=== PATIENT | male | born 1955 | race Caucasian/White ===

== ENCOUNTER → 2020-12-14 | Outpatient (CLI) | payer MEDICARE ==
[~2020-12-14] MED LIST: DOBUTamine DRIP for NUC MED 500 MG in DEXTROSE/WATER 1 250ML.BAG IV PRN
--- NOTE | 2020-12-14 13:36 | P.STRESS ---
- Stress Test Note Stress Test Results/Findings: Exam Performed: Exam Date: Reason for Exam: Height: Weight: Protocol: Stage: Duration of Exercise: Resting Heart Rate: Resting Blood Pressure: Maximum Achieved Heart Rate: Maximum Achieved Blood Pressure: 85% PMHR: 100% PMHR: METS: Technologist Comment: Stress Test Results/Findings: Baseline heart rate 75 beats a minute, Baseline blood pressure 156/89 mmHg Abnormal ECG at baseline with inverted T waves in the inferior leads and the lateral precordial leads With dobutamine infusion there was pseudonormalization of the ECG abnormalities Upright ST-T segments are noted inferior laterally during dobutamine infusion and in recovery Baseline 2-D echo showed normal LV size and systolic function without segmental wall motion normalities During dobutamine infusion there was stepwise augmentation of overall LV contractility without developing any wall motion normalities The inferior wall contact the was reduced on a 2 chamber view only that there was adequate contraction and wall thickening in all other 3 views @Recovery lesion global LV systolic function with normal Impression Abnormal ECG at baseline with T-wave inversions inferolaterally Pseudonormalization of the ST-T segments with dobutamine infusion No clearcut echocardiographic evidence for ischemia
== END | disposition home or self-care (01) ==
LOC: RADNMMAIN 08:53
PROVIDERS: ATTEND Family Medicine
DX: R94.31 Abnormal electrocardiogram [ECG] [EKG] (principal); R07.89 Other chest pain
CPT/HCPCS: C8930; J1250; Q9950; 93351

== ENCOUNTER → 2021-12-27 | Outpatient (CLI) | payer MEDICARE ==
[2021-12-27 17:51] LABS: HCT 38.3 % (39.6-50.0); HGB 12.3 g/dL (13.0-17.0); MCH 31.2 pg (27.0-32.0); MCHC 32.1 g/dL (32.0-37.0); MCV 97.2 fL (80.0-97.0); Mean Platelet Volume 11.4 fL (9.5-12.2); NRBC Per 100 WBC 0 /100 WBCS (0.0-0.0); Platelet Count 259 X 10*3/uL (140-440); RBC 3.94 X 10*6/uL (4.40-5.60); RDW 14.2 % (11.5-14.5); WBC 8.59 X 10*3/uL (4.50-10.00)
[2021-12-27 18:22] LABS: Anion Gap 12.7 mmol/L (10.00-18.00); Blood Urea Nitrogen 15.6 mg/dL (9.0-27.0); Carbon Dioxide 23.2 mmol/L (20.0-27.5); Non-African American GFR(CKD) 41.4 (60.0-200.0); Potassium 5.2 mmol/L (3.5-5.5)
== END | disposition home or self-care (01) ==
LOC: LABWHC1 12:41
PROVIDERS: ATTEND Internal Medicine Cardiovascular Disease
DX: I25.5 Ischemic cardiomyopathy (principal)
CPT/HCPCS: 36415; 80051; 82565; 84520; 85027

== ENCOUNTER 2022-01-04 07:01 | Day surgery (SDC) | payer MEDICARE ==
[2022-01-03 09:29] VITALS: BMI 25.7
[2022-01-04] MEDS ORDERED: SODIUM CHLORIDE 0.9% 1,000 ML in EMPTY BAG 1 BAG IV ONE (07:17)
[2022-01-04] MEDS ORDERED: HEPARIN SODIUM,PORCINE 10,000 UNIT in SODIUM CHLORIDE 0.9% 1,000 ML IRRIGATION PRN (07:17)
[2022-01-04] MEDS ORDERED: NITROGLYCERIN SL TABS 0.4 MG TAB SUBLINGUAL PRN (07:17)
[2022-01-04] MEDS ORDERED: ALPRAZolam 0.25 MG TAB PO PRN (07:17)
[2022-01-04] MEDS ORDERED: HEPARIN SODIUM,PORCINE 2,500 UNIT in SODIUM CHLORIDE 0.9% 250 ML IRRIGATION PRN (07:17)
[2022-01-04] MEDS ORDERED: ASPIRIN 325 MG TAB PO STA (07:17)
[2022-01-04] MEDS ORDERED: ALPRAZolam 0.5 MG TAB PO PRN (07:17)
[2022-01-04] MEDS ORDERED: ATORVASTATIN 80 MG TAB PO STA (07:17)
[2022-01-04 07:30] VITALS: RESP 16; TEMP 97.8
[2022-01-04] MEDS ORDERED: fentaNYL (PF) 50 MCG/ML 2 ML AMP ONE ×2 (08:42→09:55)
[2022-01-04] MEDS ORDERED: SODIUM CHLORIDE 0.9% 1,000 ML IV ONE (08:48)
[2022-01-04] MEDS: BENZOCAINE SPRAY 1 CAN MUCOUS MEM ONE ×2 (09:05→09:06)
[2022-01-04] MEDS ORDERED: fentaNYL (PF) 50 MCG/ML 2 ML AMP IV ONE ×2 (09:06→10:00)
[2022-01-04] MEDS ORDERED: MIDAZOLAM 2 MG/2 ML VIAL IV ONE ×2 (09:06→10:00)
[2022-01-04] MEDS ORDERED: VERAPAMIL 2.5 MG/ML 2 ML AMP ONE (09:27)
[2022-01-04] MEDS ORDERED: HEPARIN SODIUM 1,000 UN/ML (10ML VL) ONE (09:34)
[2022-01-04] MEDS ORDERED: IV FLUID CONTINUATION 1,000 ML IV ONE (09:41)
[2022-01-04] MEDS ORDERED: LIDOCAINE 1% PF 10 MG/ML (5 ML AMP) SQ ONE (09:54)
[2022-01-04] MEDS ORDERED: VERAPAMIL SYRINGE (5 MG/10 ML) INTRAARTER ONE (10:00)
[2022-01-04] MEDS ORDERED: HEPARIN SODIUM 1,000 UN/ML (10ML VL) IV ONE (10:01)
[2022-01-04] MEDS ORDERED: IOPAMIDOL-370 125ML BTL INJ ONE (10:18)
[2022-01-04] MEDS ORDERED: RX INFO: IV CONTRAST WAS GIVEN 1 EACH MISC MISCELLANE PRN (11:36)
[2022-01-04] MEDS ORDERED: SODIUM CHLORIDE 0.9% 1,000 ML IV SCH (11:45)
--- NOTE | 2022-01-04 13:26 | ECHOT ---
TRANSESOPHAGEAL ECHOCARDIOGRAM TRANSESOPHAGEAL ECHOCARDIOGRAM: INDICATION: Mitral regurgitation. PROCEDURE NOTE: After obtaining informed consent, transesophageal echocardiogram was performed in left lateral position using an Omniplane probe. Local and IV sedation were obtained with 2 mg of Versed and 25 mcg of fentanyl. Patient tolerated the procedure well without any obvious immediate complications. Total sedation time was 10 minutes. Two-D, color Doppler and spectral analysis had been performed. FINDINGS: 1. Mitral valve shows prolapse of the posterior mitral leaflet with moderate to severe anteriorly directed mitral regurgitation. 2. Left atrium appears mildly enlarged. 3. Right atrium and right ventricle seen within normal limits. 4. Aortic root measures within normal limits. 5. There is no evidence of reversal of flow in the pulmonary veins. 6. Left ventricle has normal size and systolic function. 7. Tricuspid valve shows mild tricuspid regurgitation. 8. Aortic valve is a 3-leaflet valve. There is no evidence of aortic stenosis or regurgitation. CONCLUSIONS: Moderate to severe anteriorly directed mitral regurgitation secondary to prolapse of the posterior mitral leaflet. PLAN: Patient will undergo cardiac catheterization to rule out significant obstructive CAD. MMODL / IJN: [id number] /
--- NOTE | 2022-01-04 14:07 | CC ---
CARDIAC CATHETERIZATION REPORT INDICATION: Shortness of breath with abnormal stress test. PROCEDURE NOTE: After obtaining informed consent, left heart catheterization and coronary angiogram were performed via the right radial artery using size 3-1/2 right and left Marisol catheters, and a pigtail catheter to obtain hemodynamics. Patient tolerated the procedure well without any obvious immediate complications. Patient received moderate conscious sedation. Total sedation time was 24 minutes. Patient has chronic renal insufficiency with a creatinine of 7. I hydrated him prior to catheterization and I continued to hydrate him. His contrast threshold is 123 mL. I used roughly 60 mL to complete my cardiac catheterization. We obtained right radial artery access with a micropuncture needle, and catheters and wire were manipulated into the ascending aorta under fluoroscopic guidance. Catheters were exchanged there. Patient received 5 mg of verapamil and 5000 units of IV heparin per protocol. Hemostasis was obtained using a TR band. FINDINGS: HEMODYNAMICS: Left ventricular end-diastolic pressure is 8 mm. There is no significant gradient across the aortic valve. LEFT VENTRICULOGRAM: Left ventriculogram was not performed. ANGIOGRAPHIC DATA: Left main coronary artery is a normal-sized vessel and is free of stenosis. It divides into left anterior descending coronary artery and circumflex coronary artery. LAD gives off a large-caliber diagonal branch that has a focal 80% to 90% stenosis. Circumflex coronary artery shows a chronic subtotally occluded second OM branch that fills late from [id number] collaterals. Right coronary artery is a large dominant vessel that is calcified. It shows a long area of stenosis. At its worst it is 95% stenosed. CONCLUSIONS: Three-vessel coronary artery disease as described above with a long segment of narrowing with focal critical stenosis in the right coronary artery and a diagonal branch with a chronic subtotal occlusion of a small-caliber second 2nd OM branch. PLAN: Angiographic data was reviewed by the on-call alum operator, who will perform angioplasty of the right coronary artery and diagonal branch at a later date. Because of his renal dysfunction, we decided to hydrate him and bring him back at a later date. I discussed these issues at length. He understands and is in agreement with the plans. If addressing the CAD does not improve his symptoms, we might have to consider mitral valve repair. MMODL / IJN: [id number] /
--- NOTE | 2022-01-04 14:07 | LTR ---
January 04, 2022 To: Dr. Burt Haider Re: Sacr Dubois (51) Dear Burt, I performed JOYCE and cardiac catheterization on Scar Dubois. Detailed reports are enclosed for your records. In brief, his transesophageal echo revealed moderate to severe anteriorly directed mitral regurgitation secondary to prolapse of the posterior mitral leaflet, and he has severe critical stenosis involving right coronary artery to diagonal branch. Patient will undergo staged angioplasty of those vessels at a later time, given the renal insufficiency. Thank you for giving me the privilege of participating in the care of this pleasant gentleman. Sincerely, Waqsa Figueredo M.D. REILLY / AMANDA: [id number] /
[2022-01-04 14:27] VITALS: PULSE 68
[2022-01-04 18:01] VITALS: BP 124/74
== END 2022-01-04 14:48 | disposition home or self-care (01) ==
LOC: CATHCVL 07:01
PROVIDERS: ATTEND Internal Medicine Cardiovascular Disease
DX: I25.10 Atherosclerotic heart disease of native coronary artery without angina pectoris (principal); I25.84 Coronary atherosclerosis due to calcified coronary lesion; I08.1 Rheumatic disorders of both mitral and tricuspid valves; I25.5 Ischemic cardiomyopathy; I73.9 Peripheral vascular disease, unspecified; I25.2 Old myocardial infarction; I10 Essential (primary) hypertension; Z82.49 Family history of ischemic heart disease and other diseases of the circulatory system; Z88.8 Allergy status to other drugs, medicaments and biological substances; Z87.891 Personal history of nicotine dependence; Z79.899 Other long term (current) drug therapy; Z79.82 Long term (current) use of aspirin
CPT/HCPCS: 93312; 93320; 93325; 93458; C1769 ×2; C1894; J2250; J2001; J3010; J1644; Q9967

== ENCOUNTER 2022-01-26 05:55 | Inpatient (IN) | payer MEDICARE ==
[~2022-01-26 05:55] MED LIST changes: +ALPRAZolam 0.25 MG TAB PO PRN; -DOBUTamine DRIP for NUC MED 500 MG in DEXTROSE/WATER 1 250ML.BAG IV PRN; +NITROGLYCERIN SL TABS 0.4 MG TAB SUBLINGUAL PRN; +SODIUM CHLORIDE 0.9% 1,000 ML in EMPTY BAG 1 BAG IV ONE
[2022-01-26 06:51] LABS: Calcium 8.2 mg/dL (8.4-10.2); Potassium 4.4 mmol/L (3.5-5.1)
[2022-01-26] MEDS ORDERED: HEPARIN SODIUM,PORCINE 2,500 UNIT in SODIUM CHLORIDE 0.9% 250 ML IRRIGATION PRN (07:00)
[2022-01-26] MEDS ORDERED: ATORVASTATIN 80 MG TAB PO ONE (07:00)
[2022-01-26] MEDS ORDERED: HEPARIN SODIUM,PORCINE 10,000 UNIT in SODIUM CHLORIDE 0.9% 1,000 ML IRRIGATION PRN (07:00)
[2022-01-26] MEDS ORDERED: ASPIRIN 325 MG TAB PO ONE (07:00)
[2022-01-26] MEDS ORDERED: HEPARIN SODIUM 1,000 UN/ML (10ML VL) ONE (07:34)
[2022-01-26] MEDS: MIDAZOLAM 2 MG/2 ML VIAL IV ONE ×2 (07:45→07:57)
[2022-01-26] MEDS ORDERED: LIDOCAINE 1% INJ 10MG/ML (30 ML VIAL-PF) SQ ONE ×3 (07:50→07:55)
[2022-01-26] MEDS ORDERED: fentaNYL (PF) 50 MCG/ML 2 ML AMP ONE (07:50)
[2022-01-26] MEDS ORDERED: fentaNYL (PF) 50 MCG/ML 2 ML AMP IV ONE (07:52)
[2022-01-26] MEDS: HEPARIN SODIUM 1,000 UN/ML (10ML VL) IV ONE ×3 (07:59→08:16)
[2022-01-26] MEDS: NITROGLYCERIN 1000MCG/10ML SYRINGE INTRACORON ONE ×3 (08:10→08:47)
[2022-01-26] MEDS ORDERED: TICAGRELOR 90 MG TAB ONE (08:17)
[2022-01-26] MEDS ORDERED: TICAGRELOR 90 MG TAB PO ONE (08:19)
[2022-01-26] MEDS ORDERED: IOPAMIDOL-370 100ML BTL INJ ONE ×2 (08:32→08:50)
[2022-01-26] MEDS ORDERED: RX INFO: IV CONTRAST WAS GIVEN 1 EACH MISC MISCELLANE PRN (08:58)
[2022-01-26] MEDS ORDERED: MAG HYDROX/AL HYDROX/SIMETH 30 ML CUP PO PRN (08:58)
[2022-01-26] MEDS ORDERED: ATROPINE SULFATE 0.1 MG/ML 10ML SYRINGE IV PRN (08:58)
[2022-01-26] MEDS ORDERED: ZOLPIDEM 5 MG TAB PO PRN (08:58)
[2022-01-26] MEDS ORDERED: ASPIRIN 81 MG PO SCH (09:00)
[2022-01-26] MEDS: ATORVASTATIN 80 MG TAB PO SCH (10:46)
[2022-01-26] MEDS: ASPIRIN 81 MG PO SCH (10:46)
[2022-01-26] MEDS: amLODIPine 5 MG TAB PO SCH (11:10)
[2022-01-26] MEDS: ISOSORBIDE MONONITRATE ER 30 MG TAB.ER.24H PO SCH (11:10)
[2022-01-26] MEDS: FAMOTIDINE 20 MG TAB PO SCH (11:10)
[2022-01-26] MEDS: allopurinoL 100 MG TAB PO SCH (11:10)
[2022-01-26] MEDS: METOPROLOL SUCCINATE (ER) 50 MG TAB.ER.24H PO SCH (11:11)
[2022-01-26] MEDS: SODIUM CHLORIDE 0.9% 1,000 ML in EMPTY BAG 1 BAG IV SCH ×2 (12:33→23:33)
[2022-01-26 12:57] VITALS: BMI 25.4
--- NOTE | 2022-01-26 14:44 | PTCA ---
PERCUTANEOUSTRANS CORORONARY ANGIOGRAPHY DATE OF SERVICE: 01/26/2022. PROCEDURE: 1. PTCA and stenting of a long proximal calcified ulcerated RCA lesion with drug- eluting stents. 2. PTCA and stenting of major diagonal branch of LAD with a drug-eluting stent. PERFORMED BY: Dr. Lyric Perkins. Moderate conscious sedation time was 62 minutes. Patient was administered Versed. Oxygen saturation, hemodynamics and EKG were monitored closely. CLINICAL INFORMATION: Mr. Scar Dubois is a 60-year-old gentleman with a known history of CAD who underwent recent cardiac cath. He also has a history of chronic kidney disease and significant mitral regurgitation. His creatinine was about 1.7. After the cardiac cath. I reviewed the films and suggested that I would do intervention of the proximal RCA and probably of the major diagonal branch. Second obtuse marginal was totally occluded, filling late. The patient was seen by me and I explained to him the rationale, risks, benefits and options. He understood all details and wished to proceed with the procedure. PROCEDURE NOTE: Under local anesthesia and strict aseptic precautions, a 6-Yakut introducer was placed in the right femoral artery. I used a standard right Marisol guide catheter to cannulate the right coronary artery and a run-through wire to cross the lesion. A 2.25 caliber 15 mm long NC Trek balloon was used to pre-dilate the lesion. I then deployed a 28 mm long 2.75 caliber Xience stent distally and another 3.0 caliber 8 mm Xience stent proximally. Excellent angiographic result was achieved. Patient received a total of 7500 units of heparin and ACT was 285. He also received 180 mg of Brilinta. Excellent angiographic result without complication was achieved of the RCA. I then turned my attention to the LAD. I switched the right Marisol guiding catheter to a standard left Marisol guide catheter and I used a J-tip whisper wire. With this wire, I crossed the lesion and kept the wire distally in the major diagonal branch. A 2.25 caliber 15 mm NC Trek balloon was used to pre-dilate the lesion and I then deployed a 23 mm long Xience stent to the diagonal vessel and this was a 2.25 caliber Xience stent. Excellent angiographic result was achieved. Patient did not have chest pain or EKG changes. There was excellent angiographic result of both vessels. The sheath was taken out and Angio-Seal device used to secure hemostasis. He was sent to the room in a stable condition. Findings were discussed with the patient and his family was not available. I called the , but she did not answer the telephone at home. The patient suggested that he will make the phone calls himself. He will be discharged tomorrow if he remains stable and will follow up with Dr. Figueredo in about a week. Excellent angiographic result without complication was achieved. Patient is advised dual antiplatelet therapy with Brilinta and Plavix for a total duration of 1 year without interruption. MMODL / IJN: [id number] /
[2022-01-26] MEDS: TICAGRELOR 90 MG TAB PO SCH (20:06)
[2022-01-26] MEDS: MIRTAZAPINE 15 MG TAB PO SCH (20:06)
[2022-01-27] MEDS: ALPRAZolam 0.5 MG TAB PO PRN ×2 (03:15→20:20)
[2022-01-27] MEDS: HYDROmorphone 1 MG/ML 1 ML SYRINGE IVP PRN (05:28)
[2022-01-27 06:20] LABS: Basophils % (A) 1 %; Eosinophils # (A) 0.3 k/uL (0-0.7); Eosinophils % (A) 3 %; HCT 25.6 % (39.0-53.0); Lymphocytes # (A) 0.8 k/uL (1.0-4.8); Lymphocytes % (A) 9 %; MCH 33.4 pg (25.0-35.0); MCHC 35.4 g/dL (31.0-37.0); MCV 94.3 fL (80.0-100.0); Mean Platelet Volume 7.9; Monocytes # (A) 0.5 k/uL (0-1.0); Monocytes % (A) 5 %; Neutrophils # (A) 6.9 k/uL (1.3-7.7); Neutrophils % (A) 80 %; Platelet Count 208 k/uL (150-450); RBC 2.71 m/uL (4.30-5.90); RDW 13.6 % (11.5-15.5); WBC 8.7 k/uL (3.8-10.6)
[2022-01-27 06:38] LABS: African American GFR (CKD) 66 (>60 ml/min/1.73 sqM); Anion Gap 5 mmol/L; Blood Urea Nitrogen 17 mg/dL (9-20); Calcium 7.6 mg/dL (8.4-10.2); Carbon Dioxide 20 mmol/L (22-30); Chloride 109 mmol/L (98-107); Glucose 113 mg/dL (74-99); Non-African American GFR(CKD) 57 (>60 ml/min/1.73 sqM); Potassium 4.3 mmol/L (3.5-5.1); Sodium 134 mmol/L (137-145)
[2022-01-27] MEDS: ISOSORBIDE MONONITRATE ER 30 MG TAB.ER.24H PO SCH (10:02)
[2022-01-27] MEDS: TICAGRELOR 90 MG TAB PO SCH ×2 (10:02→20:21)
[2022-01-27] MEDS: ATORVASTATIN 80 MG TAB PO SCH (10:02)
[2022-01-27] MEDS: ASPIRIN 81 MG PO SCH (10:02)
[2022-01-27] MEDS: amLODIPine 5 MG TAB PO SCH (10:02)
[2022-01-27] MEDS: allopurinoL 100 MG TAB PO SCH (10:02)
[2022-01-27] MEDS: FAMOTIDINE 20 MG TAB PO SCH (10:02)
[2022-01-27] MEDS: METOPROLOL SUCCINATE (ER) 50 MG TAB.ER.24H PO SCH (10:03)
[2022-01-27 12:07] LABS: HCT 23.7 % (39.0-53.0); HGB 8.3 gm/dL (13.0-17.5); MCH 33.7 pg (25.0-35.0); MCHC 35.1 g/dL (31.0-37.0); MCV 95.9 fL (80.0-100.0); Mean Platelet Volume 8.6; Platelet Count 209 k/uL (150-450); RBC 2.47 m/uL (4.30-5.90); RDW 14.3 % (11.5-15.5); WBC 8.2 k/uL (3.8-10.6)
[2022-01-27] MEDS ORDERED: SODIUM CHLORIDE 0.9% 1,000 ML IV SCH (13:00)
--- NOTE | 2022-01-27 15:28 | US ---
EXAMINATION TYPE: US lower ext pseudo artery RT DATE OF EXAM: 01/27/2022 COMPARISON: NONE CLINICAL HISTORY: R/o pseudoaneurysm. Right groin approach heart cath 1 day ago EXAM PERFORMED: Grayscale and color Doppler duplex imaging performed of the groin, post cardiac karen ter to assess for pseudoaneurysm. SIDE PERFORMED: Right Color and Waveform Doppler performed to assess for the presence of pseudoaneurysm; Positive for pseudoaneurysm - 1.2cm pseudoaneurysm seen that appears to be bi-lobed 3.5cm superficial hypoechoic area seen IMPRESSION: Pseudoaneurysm noted as discussed above.
[2022-01-27 18:14] LABS: Basophils # (A) 0.1 k/uL (0-0.2); Basophils % (A) 1 %; Eosinophils # (A) 0.4 k/uL (0-0.7); Eosinophils % (A) 5 %; HCT 24.7 % (39.0-53.0); HGB 8.5 gm/dL (13.0-17.5); Lymphocytes % (A) 12 %; MCHC 34.5 g/dL (31.0-37.0); MCV 95.6 fL (80.0-100.0); Mean Platelet Volume 8.3; Monocytes # (A) 0.4 k/uL (0-1.0); Monocytes % (A) 5 %; Neutrophils # (A) 6.4 k/uL (1.3-7.7); Neutrophils % (A) 77 %; Platelet Count 203 k/uL (150-450); RBC 2.59 m/uL (4.30-5.90); RDW 13.8 % (11.5-15.5); WBC 8.3 k/uL (3.8-10.6)
--- NOTE | 2022-01-27 19:45 | PN ---
PROGRESS NOTE This gentleman was admitted yesterday for elective PCI of both proximal RCA and a major diagonal branch. Procedure was performed uneventfully. Post-procedure course yesterday was unremarkable, but he woke up this morning at about 3 or 4:00 complaining of some discomfort in the groin and had a significant hematoma that required manual compression and FemoStop placement. This morning the hematoma is smaller and softer, and I took the FemoStop off. The pulse is palpable. There is no bruit. Distal pulse is also palpable but diminished, similar to pre-procedure. It appears that there may be a hematoma, but clinically it does not look like a pseudoaneurysm. I will monitor the hemoglobins and obtain an ultrasound of the groin and hold his discharge. Vital signs are stable. There is no JVD. S1-S2 heard normally with a holosystolic murmur at the apex. Lungs are clear. Abdomen is soft. Right groin has a hematoma. No bruit. Diminished distal pulses. Central nervous system is normal. EKG is unremarkable. Hemoglobin is 9.0, which is a drop and will be followed. Platelet count is normal. Plan is to repeat hemoglobin and consider an ultrasound of the groin to rule out a pseudoaneurysm, and if it is, consider interventional radiology evaluation. For now we will hold discharge. I will keep him in the hospital and make him an inpatient. Discussed my thoughts in detail with the patient. We will be watching him closely. MMODL / IJN: [id number] /
[2022-01-27] MEDS: MIRTAZAPINE 15 MG TAB PO SCH (20:20)
[2022-01-28 05:22] LABS: Basophils # (A) 0.1 k/uL (0-0.2); Basophils % (A) 1 %; Eosinophils # (A) 0.5 k/uL (0-0.7); Eosinophils % (A) 7 %; HCT 23.2 % (39.0-53.0); Lymphocytes # (A) 0.9 k/uL (1.0-4.8); Lymphocytes % (A) 13 %; MCH 32.8 pg (25.0-35.0); MCHC 34.6 g/dL (31.0-37.0); MCV 94.8 fL (80.0-100.0); Mean Platelet Volume 8.1; Monocytes # (A) 0.4 k/uL (0-1.0); Monocytes % (A) 7 %; Neutrophils # (A) 4.9 k/uL (1.3-7.7); Neutrophils % (A) 71 %; Platelet Count 183 k/uL (150-450); RBC 2.45 m/uL (4.30-5.90); RDW 13.8 % (11.5-15.5); WBC 6.9 k/uL (3.8-10.6)
[2022-01-28] MEDS ORDERED: SODIUM CHLORIDE 0.9% 1,000 ML IV SCH (07:44)
[2022-01-28] MEDS ORDERED: SODIUM CHLORIDE 0.9% 500 ML 500 ML IV SCH (07:45)
[2022-01-28] MEDS ORDERED: THROMBIN (BOVINE) 5,000 UNIT VIAL MISCELLANE STA (08:26)
--- NOTE | 2022-01-28 11:05 | P.PN ---
Subjective Progress Note Date: 01/28/22 Principal diagnosis: Right groin discomfort This is a 66-year-old gentleman was known CAD who underwent stenting of the RCA and a dilated recently from right groin approach continues to have right groin discomfort. Further investigation was performed and revealed pseudoaneurysm. The patient was seen this morning. He is in process of seeing by interventional radiology for possible either compression or thrombin injection. Otherwise he remains asymptomatic from the cardiac standpoint in terms of chest pain or chest discomfort. He is on dual antiplatelet therapy with he is hemodynamically stable as well. We'll continue following up with the patient. Objective - Vital Signs Vital signs: Vital Signs Temp 98.5 F 01/28/22 07:00 Pulse 72 01/28/22 07:00 Resp 20 01/28/22 07:00 BP 127/69 01/28/22 07:00 Pulse Ox 96 01/28/22 07:00 FiO2 Intake & Output 01/27/22 01/28/22 01/28/22 18:59 06:59 18:59 Intake Total 0 Output Total 0 Balance 0 0 Intake: Oral 0 Output: Emesis 0 Other: Voiding Method Toilet Urinal # Voids 1 2 # Bowel Movements 0 - Constitutional General appearance: Present: no acute distress - Respiratory Respiratory: bilateral: CTA - Cardiovascular Rhythm: regular - Labs CBC & Chem 7: 01/28/22 04:14 01/27/22 05:58 Labs: Abnormal Lab Results - Last 24 Hours (Table) 01/27/22 01/27/22 01/28/22 Range/Units 11:49 17:57 04:14 RBC 2.47 L 2.59 L 2.45 L (4.30-5.90) m/uL Hgb 8.3 L 8.5 L 8.0 L (13.0-17.5) gm/dL Hct 23.7 L 24.7 L 23.2 L (39.0-53.0) % Lymphocytes # 0.9 L (1.0-4.8) k/uL Assessment and Plan Assessment: Assessment #1 coronary artery disease and status post PCI #2 right groin pseudoaneurysm #3 hypertension #4 dyslipidemia Plan #1 continue dual antiplatelet therapy #2 the patient is in process of having an intervention by interventional radiologist #3 follow-up with the patient
[2022-01-28] MEDS ORDERED: RX INFO: IV CONTRAST WAS GIVEN 1 EACH MISC MISCELLANE PRN (11:13)
--- NOTE | 2022-01-28 11:43 | US ---
EXAMINATION TYPE: US lower ext pseudo artery RT DATE OF EXAM: 01/28/2022 COMPARISON: NONE CLINICAL HISTORY: pseudoaneurysm. EXAM PERFORMED: Grayscale and color Doppler duplex imaging performed of the groin, post cardiac karen ter to assess for pseudoaneurysm. SIDE PERFORMED: Right Color and Waveform Doppler performed to assess for the presence of pseudoaneurysm; Is there ultrasound evidence of a pseudoaneurysm: Yes Exam was performed for procedure planning purposes. Attempts to identify the platinum artery were unsuccessful. Exam is deferred due to vascular surgery, c ase discussed with Dr. Perkins. IMPRESSION: Pseudoaneurysm in right groin shows a multilobular appearance. As above.
[2022-01-28] MEDS: ISOSORBIDE MONONITRATE ER 30 MG TAB.ER.24H PO SCH (12:07)
[2022-01-28] MEDS: ATORVASTATIN 80 MG TAB PO SCH (12:07)
[2022-01-28] MEDS: allopurinoL 100 MG TAB PO SCH (12:07)
[2022-01-28] MEDS: METOPROLOL SUCCINATE (ER) 50 MG TAB.ER.24H PO SCH (12:07)
[2022-01-28] MEDS: FAMOTIDINE 20 MG TAB PO SCH (12:07)
[2022-01-28] MEDS: amLODIPine 5 MG TAB PO SCH (12:07)
--- NOTE | 2022-01-28 12:12 | PN ---
PROGRESS NOTE This gentleman underwent stenting of RCA and major diagonal branch on the sixth of this month. Yesterday he had a hematoma when he woke up around 3 o'clock in the morning. Ultrasound later in the day revealed that there was a 1.2 cm pseudoaneurysm and I requested interventional radiology to see the patient. They would like to see him today. The patient is hemodynamically stable, does not have any symptoms. Hemoglobin is down to 8.0. Vitals are stable. No JVD. S1-S2 heard normally. A holosystolic murmur at the apex is audible. Lungs are clear. Abdomen is soft. Right groin has a hematoma of about 3 cm or so. No change compared to yesterday. Site is soft. There is no bruit. Lower extremities revealed palpable pulses. RECOMMENDATIONS: I am requesting interventional radiology to see the patient and consider ultrasound compression or thrombin injection to help resolve the pseudoaneurysm. I explained this in detail to the patient, explained to him that he may be staying in the hospital 1 more day. We will start his IV at 0.9 saline 20 mL/hour and hopefully he will have ultrasound-guided compression or a thrombin injection today. I discussed my thoughts in detail with the patient. He has no anginal symptoms. His coronary intervention results were excellent. We will continue current medications which include dual antiplatelet therapy. MMODL / IJN: [id number] /
--- NOTE | 2022-01-28 12:39 | P.GSCN ---
History of Present Illness Consult date: 01/28/22 Reason for Consult: right groin pseudoaneurysm post catheterization History of present illness: i was asked to evaluate right groin for treatment, real time u/s performed, case discussed with Dr. Perkins. CTA performed showing deep multilobular pseudoaneurysm formation. Defer to vascular surgery for treatment. Past Medical History Past Medical History: Asthma, GERD/Reflux, Hyperlipidemia, Hypertension, Myocardial Infarction ([place]) Additional Past Medical History / Comment(s): Migraines, Gout. Last Myocardial Infarction Date:: Unknown History of Any Multi-Drug Resistant Organisms: None Reported Past Surgical History: Heart Catheterization Additional Past Surgical History / Comment(s): Colonoscopy. Past Anesthesia/Blood Transfusion Reactions: No Reported Reaction Past Psychological History: No Psychological Hx Reported Smoking Status: Former smoker Past Alcohol Use History: Daily Additional Past Alcohol Use History / Comment(s): Quit smoking 09/14, smoked since age 18. One alcoholic drink daily. Past Drug Use History: Marijuana - Past Family History Mother Family Medical History: No Reported History Medications and Allergies Home Medications Medication Instructions Recorded Confirmed Type Aspirin [Adult Low Dose Aspirin EC] 81 mg PO DAILY 01/03/22 01/26/22 History Atorvastatin [Lipitor] 40 mg PO DAILY 01/03/22 01/26/22 History Famotidine [Pepcid] 20 mg PO DAILY 01/03/22 01/26/22 History Isosorbide Mononitrate ER [Imdur] 30 mg PO DAILY 01/03/22 01/26/22 History Metoprolol Succinate (ER) [Toprol 50 mg PO DAILY 01/03/22 01/26/22 History Xl] allopurinoL 100 mg PO DAILY 01/03/22 01/26/22 History amLODIPine [Norvasc] 5 mg PO DAILY 01/03/22 01/26/22 History Mirtazapine 30 mg PO HS 01/04/22 01/26/22 History Allergies Allergy/AdvReac Type Severity Reaction Status Date / Time rifampin Allergy Swelling Unverified 01/20/22 10:44 Surgical - Exam Vital Signs Temp Pulse Resp BP Pulse Ox 97.6 F 75 16 186/90 96 01/26/22 06:42 01/26/22 06:42 01/26/22 06:42 01/26/22 06:42 01/26/22 06:42 Results - Labs 01/28/22 04:14 01/27/22 05:58 Abnormal Lab Results - Last 24 Hours (Table) 01/27/22 01/28/22 Range/Units 17:57 04:14 RBC 2.59 L 2.45 L (4.30-5.90) m/uL Hgb 8.5 L 8.0 L (13.0-17.5) gm/dL Hct 24.7 L 23.2 L (39.0-53.0) % Lymphocytes # 0.9 L (1.0-4.8) k/uL
--- NOTE | 2022-01-28 13:10 | CT ---
CT angiogram of the lower extremity on the right HISTORY: Pseudoaneurysm Correlation to ultrasound of the right groin 7 and 28 January 2022 Helical acquisition obtained from the lower abdomen through the lower extremities following dynamic a dministration of 125 cc [id number]-370 IV. 3-dimensional reconstructions were performed on an alternate w orkstation. FINDINGS: Atheromatous changes are extensive. Abdominal aorta is not aneurysmal peripherally. The com mon iliac, inferior mesenteric, internal and external iliac arteries are patent with segmental areas of narrowing, atheromatous change. The common femoral arteries are patent. The femoral arteries are p atent. There is confirmation of the pseudoaneurysm at the level of the right common femoral artery, multilob ular configuration extends from the level of the artery towards the skin surface, overall AP dimensio n is approximately 3.6 cm x 9 mm x12 mm. Axial image #114 shows possible flap dissection within the c ommon femoral artery. There is local inflammatory change. There is enhancement of the common femoral vein as well as some tributaries at this level. The left superficial femoral artery is occluded at the level of Brando's canal, there is reconstituti on above the level the knee. Three-vessel outflow is noted to be mid calf level, two-vessel outflow b een is present into the foot. On the right, two-vessel outflow is also present on the right. Diverticular change noted within the colon. Prostate calcifications and enlargement noted incidentall y. IMPRESSION: Pseudoaneurysm right groin, concern for arteriovenous fistula, possible small local disse ction, case discussed with Dr. El personally
[2022-01-28] MEDS: ASPIRIN 81 MG PO SCH (14:58)
[2022-01-28] MEDS: TICAGRELOR 90 MG TAB PO SCH (14:58)
--- NOTE | 2022-01-28 18:55 | P.GSCN ---
History of Present Illness Consult date: 01/28/22 History of present illness: Scar is a 66-year-old male with coronary artery disease who recently underwent stenting of the RCA for a right groin approach. He was having groin pain and per the nursing staff, prior to her leaving yesterday, the dressing was clean and dry but overnight had some degree of drainage and hematoma creation. Reportedly the patient's is a nurse did not look at the access site through the night. At the time it was found, a FemoStop was placed for a few hours and then removed from the ultrasound which did confirm a pseudoaneurysm. A repeat imaging was performed the following day with intent of having radiology inject thrombin. However they did not feel comfortable doing so and required a CT angiogram and deferred to vascular surgery. This was performed showing a pseudoaneurysm that is lobulated. The patient denies any pain anywhere else other than at his groin site. Past Medical History Past Medical History: Asthma, GERD/Reflux, Hyperlipidemia, Hypertension, Desmond cardial Infarction ([place]) Additional Past Medical History / Comment(s): Migraines, Gout. Last Myocardial Infarction Date:: Unknown History of Any Multi-Drug Resistant Organisms: None Reported Past Surgical History: Heart Catheterization Additional Past Surgical History / Comment(s): Colonoscopy. Past Anesthesia/Blood Transfusion Reactions: No Reported Reaction Past Psychological History: No Psychological Hx Reported Smoking Status: Former smoker Past Alcohol Use History: Daily Additional Past Alcohol Use History / Comment(s): Quit smoking 09/14, smoked since age 18. One alcoholic drink daily. Past Drug Use History: Marijuana - Past Family History Mother Family Medical History: No Reported History Medications and Allergies Home Medications Medication Instructions Recorded Confirmed Type Aspirin [Adult Low Dose Aspirin EC] 81 mg PO DAILY 01/03/22 01/26/22 History Atorvastatin [Lipitor] 40 mg PO DAILY 01/03/22 01/26/22 History Famotidine [Pepcid] 20 mg PO DAILY 01/03/22 01/26/22 History Isosorbide Mononitrate ER [Imdur] 30 mg PO DAILY 01/03/22 01/26/22 History Metoprolol Succinate (ER) [Toprol 50 mg PO DAILY 01/03/22 01/26/22 History Xl] allopurinoL 100 mg PO DAILY 01/03/22 01/26/22 History amLODIPine [Norvasc] 5 mg PO DAILY 01/03/22 01/26/22 History Mirtazapine 30 mg PO HS 01/04/22 01/26/22 History Allergies Allergy/AdvReac Type Severity Reaction Status Date / Time rifampin Allergy Swelling Unverified 01/20/22 10:44 Surgical - Exam Vital Signs Temp Pulse Resp BP Pulse Ox 97.6 F 75 16 186/90 96 01/26/22 06:42 01/26/22 06:42 01/26/22 06:42 01/26/22 06:42 01/26/22 06:42 Gen. is a pleasant cooperative male in no acute distress. HEENT is normocephalic, atraumatic, excellent motion intact. Heart appears regular in rate and rhythm at this time. Lungs are clear bilaterally. Abdomen is soft, nontender nondistended. Right groin with large ecchymosis and pulsatile mass. Painful to palpation. Pressure dressing in place. No pain in his lower extremities. Motor sensory intact. Normal mood and affect. Cranial nerves II through XII intact. Anxious. Results Computed tomography scan ultrasounds are reviewed - Labs 01/28/22 04:14 01/27/22 05:58 Abnormal Lab Results - Last 24 Hours (Table) 01/28/22 Range/Units 04:14 RBC 2.45 L (4.30-5.90) m/uL Hgb 8.0 L (13.0-17.5) gm/dL Hct 23.2 L (39.0-53.0) % Lymphocytes # 0.9 L (1.0-4.8) k/uL Assessment and Plan Assessment: Right groin pseudoaneurysm Recent cardiac stent placement Plan: Given the appearance of the imaging, and radiology not feeling this was adequate for injection, would then take the patient to the operating room for surgical repair of the artery. Risks and benefits of this were discussed with the patient is seemingly understands. He'll be nothing by mouth after midnight and type and cross will be ordered.
[2022-01-28] MEDS: MIRTAZAPINE 15 MG TAB PO SCH (19:55)
[2022-01-28] MEDS: ALPRAZolam 0.5 MG TAB PO PRN (19:55)
[2022-01-28] MEDS: SODIUM CHLORIDE 0.9% 1,000 ML IV SCH (19:56)
[2022-01-29] MEDS: amLODIPine 5 MG TAB PO SCH (07:30)
[2022-01-29] MEDS: FAMOTIDINE 20 MG TAB PO SCH (07:30)
[2022-01-29] MEDS: allopurinoL 100 MG TAB PO SCH (07:30)
[2022-01-29] MEDS: ATORVASTATIN 80 MG TAB PO SCH (07:30)
[2022-01-29] MEDS: METOPROLOL SUCCINATE (ER) 50 MG TAB.ER.24H PO SCH (07:31)
[2022-01-29] MEDS: ISOSORBIDE MONONITRATE ER 30 MG TAB.ER.24H PO SCH (07:33)
[2022-01-29] MEDS ORDERED: ceFAZolin 1,000 MG in SODIUM CHLORIDE 0.9% 1,000 ML IRRIGATION ONE (08:09)
[2022-01-29] MEDS ORDERED: IV FLUID CONTINUATION 1,000 ML IV ONE (08:09)
[2022-01-29] MEDS ORDERED: SODIUM CHLORIDE 0.9% 500 ML 500 ML with HEPARIN SODIUM,PORCINE 5,000 UNIT IV ONE ×2 (08:09)
[2022-01-29] MEDS ORDERED: SODIUM CHLORIDE 0.9% 100 ML with ceFAZolin 2,000 MG IV ONE ×2 (08:09)
[2022-01-29] MEDS ORDERED: GLYCOPYRROLATE 0.2 MG/ML 2 ML VIAL ONE (08:13)
[2022-01-29] MEDS ORDERED: MIDAZOLAM 2 MG/2 ML VIAL ONE (08:13)
[2022-01-29] MEDS ORDERED: NEOSTIGMINE 1 MG/ML 10 ML VIAL ONE (08:13)
[2022-01-29] MEDS ORDERED: SUCCINYLCHOLINE CHLORIDE 100 MG/5 ML SYR IV ONE (08:13)
[2022-01-29] MEDS ORDERED: LIDOCAINE 2% INJ 20 MG/ML (2 ML VIAL) ONE (08:13)
[2022-01-29] MEDS ORDERED: PROPOFOL 10 MG/ML 20 ML VIAL IV ONE (08:13)
[2022-01-29] MEDS ORDERED: ceFAZolin 1,000 MG VIAL ONE (08:13)
[2022-01-29] MEDS ORDERED: ROCURONIUM 10 MG/ML (5 ML VIAL) IV ONE (08:13)
[2022-01-29] MEDS ORDERED: fentaNYL (PF) 50 MCG/ML 2 ML AMP ONE (08:13)
[2022-01-29] MEDS ORDERED: LACTATED RINGERS 1,000 ML IV ONE ×2 (08:35→10:15)
[2022-01-29] MEDS: SODIUM CHLORIDE 0.9% 1,000 ML IV SCH ×2 (09:34→11:53)
[2022-01-29] MEDS ORDERED: MEPERIDINE 50 MG/ML SYRINGE IVP ONE (10:10)
--- NOTE | 2022-01-29 11:05 | P.CNPUL ---
History of Present Illness Consult date: 01/29/22 Requesting physician: Mirian Hinson Reason for consult: other (ICU management) Chief complaint: This is on exertion fatigue and inconclusive dobutamine stress test History of present illness: This is a 66-year-old white male with history of chronic dyspnea on exertion 2 months. Patient was seen by Dr. Hoffman in the office, and he underwent stress testing which was inconclusive. Patient underwent cardiac catheterization on 01/04/22, and it was significant for long area of stenosis in the RCA, 95%. However considering the patient had abnormal renal profile at the time, he was advised to undergo angioplasty of the RCA at a later date. On 01/26, patient underwent PTCA and stenting of long proximal calcified ulcerated RCA lesion with drug-eluting stents. He also had PTCA and stenting of major diagonal branch of LAD. This was done by Dr. ESTHER Perkins however this was complicated by developing pseudoaneurysm of the right femoral artery. Radiology was consulted however the abnormality in the right femoral artery was not felt to be appropriate for injections been vascular surgery was consulted. Today the patient underwent repair of pseudoaneurysm of the right femoral artery, postoperatively the surgeon felt it would be best to monitor the patient in the ICU. CT angiogram prior to surgery showed pseudoaneurysm right groin possible AV fistula and possible some local dissection Review of Systems Constitutional: As noted in HPI HEENT: Negative Cardiac: As noted in HPI Pulmonary: Negative, except for chronic dyspnea on exertion GI: Negative Genitourinary: Negative Muscular skeletal: Negative Skin: Negative Endocrine: Negative Hematologic: Negative Urologic: Negative Psychiatric: Past Medical History Past Medical History: Asthma, GERD/Reflux, Hyperlipidemia, Hypertension, Myocardial Infarction ([place]) Additional Past Medical History / Comment(s): Migraines, Gout. Last Myocardial Infarction Date:: Unknown History of Any Multi-Drug Resistant Organisms: None Reported Past Surgical History: Heart Catheterization Additional Past Surgical History / Comment(s): Colonoscopy. Past Anesthesia/Blood Transfusion Reactions: No Reported Reaction Past Psychological History: No Psychological Hx Reported Smoking Status: Former smoker Past Alcohol Use History: Daily Additional Past Alcohol Use History / Comment(s): Quit smoking 09/14, smoked since age 18. One alcoholic drink daily. Past Drug Use History: Marijuana - Past Family History Mother Family Medical History: No Reported History Medications and Allergies Home Medications Medication Instructions Recorded Confirmed Type Aspirin [Adult Low Dose Aspirin EC] 81 mg PO DAILY 01/03/22 01/26/22 History Atorvastatin [Lipitor] 40 mg PO DAILY 01/03/22 01/26/22 History Famotidine [Pepcid] 20 mg PO DAILY 01/03/22 01/26/22 History Isosorbide Mononitrate ER [Imdur] 30 mg PO DAILY 01/03/22 01/26/22 History Metoprolol Succinate (ER) [Toprol 50 mg PO DAILY 01/03/22 01/26/22 History Xl] allopurinoL 100 mg PO DAILY 01/03/22 01/26/22 History amLODIPine [Norvasc] 5 mg PO DAILY 01/03/22 01/26/22 History Mirtazapine 30 mg PO HS 01/04/22 01/26/22 History Allergies Allergy/AdvReac Type Severity Reaction Status Date / Time rifampin Allergy Swelling Unverified 01/20/22 10:44 Physical Exam Vitals: Vital Signs Temp Pulse Pulse Pulse Resp BP BP 01/29/22 10:29 58 L 16 137/41 121/58 01/29/22 10:14 65 16 158/46 137/63 01/29/22 09:59 74 16 144/46 124/58 01/29/22 09:44 97 F L 16 L 16 121/59 01/29/22 07:30 16 01/29/22 07:26 98.9 F 71 16 154/77 01/29/22 02:19 98.6 F 77 16 124/62 01/28/22 19:03 98.5 F 80 18 133/69 01/28/22 15:00 98.5 F 73 18 120/65 Pulse Ox 01/29/22 10:29 96 01/29/22 10:14 97 01/29/22 09:59 100 01/29/22 09:44 99 01/29/22 07:30 01/29/22 07:26 97 01/29/22 02:19 96 01/28/22 19:03 99 01/28/22 15:00 98 Intake and Output 01/28/22 01/29/22 01/29/22 22:59 06:59 14:59 Intake Total 118 1402 Output Total 300 Balance 118 1102 Intake: IV 1402 Oral 118 Output: Urine 250 Estimated Blood Loss 50 Other: Voiding Method Toilet # Voids 1 1 Physical Exam: Revealed a 66-year-old white male in no distress, patient was seen in the recovery room. Head: Atraumatic, normocephalic. HEENT:[Neck is supple.] [No neck masses.] [No thyromegaly.] [No JVD.] Chest: [Clear throughout, no crackles, no rhonchi, no wheezes.] Cardiac Exam: [Normal S1 and S2, no S3 gallop, no murmur.] Abdomen: [Soft, nontender, no megaly, no rebound, no guarding, normal bowel sounds.] Extremities: [No clubbing, no edema, no cyanosis.] Diminished distal pulses bilaterally. No cyanosis both feet felt warm. Neurological Exam: [No focal neurologic deficit.] Alert oriented 3 Psychiatric: Normal mood affect and normal mental examination. Results - Laboratory Findings CBC and BMP: 01/28/22 04:14 01/27/22 05:58 Abnormal lab findings: Abnormal Labs 01/26/22 01/27/22 01/27/22 06:23 05:58 05:58 RBC 2.71 L Hgb 9.0 L Hct 25.6 L Lymphocytes # 0.8 L Sodium 134 L Chloride 108 H 109 H Carbon Dioxide 20 L 20 L BUN 25 H Creatinine 1.45 H 1.28 H Glucose 106 H 113 H Calcium 8.2 L 7.6 L Crossmatch 01/27/22 01/27/22 01/28/22 11:49 17:57 04:14 RBC 2.47 L 2.59 L 2.45 L Hgb 8.3 L 8.5 L 8.0 L Hct 23.7 L 24.7 L 23.2 L Lymphocytes # 0.9 L Sodium Chloride Carbon Dioxide BUN Creatinine Glucose Calcium Crossmatch 01/28/22 19:05 RBC Hgb Hct Lymphocytes # Sodium Chloride Carbon Dioxide BUN Creatinine Glucose Calcium Crossmatch See Detail Assessment and Plan Assessment: Impression: Right groin pseudoaneurysm, status post repair by vascular surgery postoperative day #0 Recent cardiac stent placement Underlying coronary arteriosclerosis Benign essential hypertension Recommendation: Continue present supportive care measures Continue postoperative orders as recommended by vascular surgery Resume his home cardiac meds and his post cardiac cath medications. Will monitor in the ICU for the next 24 hours. We'll continue to follow Time with Patient: Greater than 30
[2022-01-29 11:10] LABS: HCT 20.4 % (39.0-53.0); MCH 33.1 pg (25.0-35.0); MCV 97.4 fL (80.0-100.0); Mean Platelet Volume 7.8; Platelet Count 179 k/uL (150-450); RBC 2.09 m/uL (4.30-5.90); RDW 14.3 % (11.5-15.5); WBC 6.7 k/uL (3.8-10.6)
--- NOTE | 2022-01-29 11:18 | P.OP ---
Date of Procedure: 01/29/22 Description of Procedure: Preoperative diagnosis: [Right femoral pseudoaneurysm, possible AV fistula] Postoperative diagnosis: Same, no evidence of fistula Procedure: [#1 right groin exploration #2 control of hemorrhage #3 repair of right femoral artery/pseudoaneurysm] Surgeon: Mirian Hinson D.O. EBL: [50 mL] IV fluids: [See records ] Urine output: [see records] Drains: [15 JADYN] Complications: [None immediately apparent] Condition: [Stable to recovery] Operative indication and findings: [The patient is a 66-year-old male who recently underwent a heart catheterization and stent placement who developed groin pain and significant ecchymosis. Evaluation and workup found a right femoral pseudoaneurysm with possible AV fistula. It was not amenable to injection per the radiology team therefore plans are to take the patient is a operative suite for repair. Risks and benefits were discussed. He seemingly understood and was willing to proceed] Procedure in detail: [Patient is taken the operative suite and placed in supine position. The bilateral groins are prepped and draped in usual sterile fashion. A preprocedure timeout was performed, all parties were in agreement. A vertical incision was made overlying the pulsatile mass and carried down to subcu tissue. There was significant hemorrhagic change the tissues. Brisk and blunt dissection was performed down to the level of the common femoral artery and digital pressure was held. The artery was dissected free and was encircled with a vessel loop. Flow was occluded at this level. Then further distal dissection was performed encountering the area of bleeding. Initial 6-0 Prolene was placed. Further dissection was performed and did elicit the actual puncture site at the distal common femoral artery where the artery took a dive deep. 6-0 Prolene was placed and hemostasis was achieved. The vessel loop was loosened and blood flow was resumed. No active bleeding. Further dissection was performed to evaluate for possible fistula. A long segment of the femoral artery was dissected without any evidence of fistulization. The area then was copiously irrigated with antibiotic solution. Hematoma was removed. Again hemostasis appeared sufficient and there is no oozing from the access site. A Doppler was utilized showing multiphasic signal proximally and distally to the repair. There was good palpable pulse distal to the repair A 15 JADYN drain was placed through a separate puncture site. The wound was then reapproximated the femoral sheath was reapproximated with 3-0 Vicryl. The subcutaneous tissues were present with 3-0 Vicryl. The skin was reapproximated with running 4-0 Vicryl. The drain was set in place with a 2-0 nylon. dressings were placed. Patient was transferred to recovery in stable condition having tolerated the procedure well]
[2022-01-29 11:23] LABS: Glucose,Whole Blood 107 mg/dL (70-110)
[2022-01-29 12:01] LABS: HGB 6.9 gm/dL (13.0-17.5)
[2022-01-29] MEDS: HYDROmorphone 1 MG/ML 1 ML SYRINGE IVP PRN (12:57)
[2022-01-29] MEDS ORDERED: DEXAMETHASONE SOD PHOSPHATE 10 MG/ML 1 ML VIAL IVP STA (17:27)
[2022-01-29] MEDS ORDERED: ONDANSETRON 4 MG/2 ML VIAL IVP PRN (17:28)
[2022-01-29] MEDS ORDERED: CLEVIDIPINE BUTYRATE 25 MG in EMPTY BAG 1 BAG IV SCH (17:30)
[2022-01-29] MEDS ORDERED: hydrALAZINE HCL 20 MG/ML 1 ML VIAL IVP PRN (17:46)
[2022-01-29 18:34] LABS: HCT 24.2 % (39.0-53.0); MCH 32.6 pg (25.0-35.0); MCHC 34.6 g/dL (31.0-37.0); MCV 94.2 fL (80.0-100.0); Mean Platelet Volume 8.3; Platelet Count 165 k/uL (150-450); RBC 2.57 m/uL (4.30-5.90); RDW 14.4 % (11.5-15.5); WBC 11.4 k/uL (3.8-10.6)
[2022-01-29 18:54] LABS: HGB 8.4 gm/dL (13.0-17.5)
[2022-01-29] MEDS: MIRTAZAPINE 15 MG TAB PO SCH (21:40)
[2022-01-29] MEDS: TICAGRELOR 90 MG TAB PO SCH (21:42)
[2022-01-30 04:51] LABS: Basophils % (A) 0 %; Eosinophils % (A) 0 %; HGB 8.3 gm/dL (13.0-17.5); Lymphocytes # (A) 0.3 k/uL (1.0-4.8); Lymphocytes % (A) 3 %; MCH 32.7 pg (25.0-35.0); MCHC 34.5 g/dL (31.0-37.0); MCV 94.6 fL (80.0-100.0); Mean Platelet Volume 7.9; Monocytes # (A) 0.2 k/uL (0-1.0); Monocytes % (A) 2 %; Neutrophils % (A) 94 %; Platelet Count 205 k/uL (150-450); RBC 2.54 m/uL (4.30-5.90); RDW 14.8 % (11.5-15.5); WBC 9.6 k/uL (3.8-10.6)
[2022-01-30 04:55] LABS: Albumin 2.8 g/dL (3.5-5.0); Calcium 7.5 mg/dL (8.4-10.2); Potassium 4.4 mmol/L (3.5-5.1); Total Bilirubin 0.3 mg/dL (0.2-1.3); Total Protein 5.4 g/dL (6.3-8.2)
[2022-01-30] MEDS: TICAGRELOR 90 MG TAB PO SCH ×2 (08:12→20:45)
[2022-01-30] MEDS: FAMOTIDINE 20 MG TAB PO SCH (08:12)
[2022-01-30] MEDS: METOPROLOL SUCCINATE (ER) 50 MG TAB.ER.24H PO SCH (08:12)
[2022-01-30] MEDS: ISOSORBIDE MONONITRATE ER 30 MG TAB.ER.24H PO SCH (08:12)
[2022-01-30] MEDS: allopurinoL 100 MG TAB PO SCH (08:12)
[2022-01-30] MEDS: ATORVASTATIN 80 MG TAB PO SCH (08:12)
[2022-01-30 12:03] LABS: Glucose,Whole Blood 152 mg/dL (70-110)
--- NOTE | 2022-01-30 12:19 | P.PN ---
Subjective Progress Note Date: 01/30/22 Principal diagnosis: Status post right groin exploration and repair of right femoral artery pseudoaneurysm. Postoperative day #1 This is a 66-year-old white male with history of chronic dyspnea on exertion 2 months. Patient was seen by Dr. Hoffman in the office, and he underwent stress testing which was inconclusive. Patient underwent cardiac catheterization on 01/04/22, and it was significant for long area of stenosis in the RCA, 95%. However considering the patient had abnormal renal profile at the time, he was advised to undergo angioplasty of the RCA at a later date. On 01/26, patient underwent PTCA and stenting of long proximal calcified ulcerated RCA lesion with drug-eluting stents. He also had PTCA and stenting of major diagonal branch of LAD. This was done by Dr. ESTHER Perkins however this was complicated by developing pseudoaneurysm of the right femoral artery. Radiology was consulted however the abnormality in the right femoral artery was not felt to be appropriate for injections been vascular surgery was consulted. Today the patient underwent repair of pseudoaneurysm of the right femoral artery, postoperatively the surgeon felt it would be best to monitor the patient in the ICU. CT angiogram prior to surgery showed pseudoaneurysm right groin possible AV fistula and possible some local dissection Reevaluated today 01/30/2022, patient is doing fairly well, relatively asymptomatic. No cough no wheezing no shortness of breath, continues to have a JADYN drain in the right groin area, however the patient is relatively asymptomatic. Yesterday the patient had a low hemoglobin of 6.9 he did receive a unit of packed RBCs, patient developed a minor nonhemolytic reaction to the blood transfusion, patient developed fever, chills, and hypertension. This was very transient, workup for major reaction to blood transfusion was negative. Patient did receive 1 dose of Decadron, and within half an hour his symptoms have completely resolved. Today the patient is doing well, and asymptomatic. Labs today including CBC and basic metabolic profile are unremarkable. His hemoglobin is 8.3, it was 6.9 yesterday Objective - Vital Signs Vital signs: Vital Signs Temp 98.8 F 01/30/22 08:00 Pulse 72 01/30/22 10:00 Resp 18 01/30/22 11:00 BP 108/56 01/30/22 11:00 Pulse Ox 96 01/30/22 11:00 FiO2 Intake & Output 07/09/22 07/10/22 07/10/22 18:59 06:59 18:59 Intake Total 2233 1836 312 Output Total 685 1160 320 Balance 1548 676 -8 Weight 75.8 kg Intake: IV 1623 911 312 Pressure Bag 0.9 NS 21 36 12 Sodium Chloride 0.9% 1, 825 300 000 ml @ 75 mls/hr IV . [id number] VERA Rx#:[id number] ceFAZolin 2 gm In Sodium 50 Chloride 0.9% 50 ml @ 100 mls/hr IVPB Q8HR [facility]A Rx# :[id number] Intake, IV Titration 300 75 Amount Sodium Chloride 0.9% 1, 250 75 000 ml @ 75 mls/hr IV . [id number] VERA Rx#:[id number] ceFAZolin 2 gm In Sodium 50 Chloride 0.9% 50 ml @ 100 mls/hr IVPB Q8HR VERA Rx# :[id number] Oral 850 Blood Product 310 Rc As-1 Unit 310 [id number] Output: Urine 635 1160 320 Estimated Blood Loss 50 Other: Voiding Method Indwelling Catheter Indwelling Catheter Indwelling Catheter # Voids 0 ABP, PAP, CO, CI - Last Documented Arterial Blood Pressure 108/46 - Exam Physical Exam HEENT:[Neck is supple.] [No neck masses.] [No thyromegaly.] [No JVD.] Chest: [Clear throughout, no crackles, no rhonchi, no wheezes.] Cardiac Exam: [Normal S1 and S2, no S3 gallop, no murmur.] Abdomen: [Soft, nontender, no megaly, no rebound, no guarding, normal bowel sounds.] Extremities: [No clubbing, no edema, no cyanosis.] Evidence of ecchymosis noted in the right groin area and JADYN drain noted. Minimal blood noted in the JADYN drain Neurological Exam: [No focal neurologic deficit.] Alert oriented 3 Psychiatric: Normal mood affect and normal mental status examination. - Labs CBC & Chem 7: 01/30/22 04:20 01/30/22 04:20 Labs: Abnormal Lab Results - Last 24 Hours (Table) 01/28/22 01/29/22 01/30/22 Range/Units 19:05 17:50 04:20 WBC 11.4 H (3.8-10.6) k/uL RBC 2.57 L 2.54 L (4.30-5.90) m/uL Hgb 8.4 L D 8.3 L (13.0-17.5) gm/dL Hct 24.2 L 24.0 L (39.0-53.0) % Neutrophils # 9.0 H (1.3-7.7) k/uL Lymphocytes # 0.3 L (1.0-4.8) k/uL Sodium (137-145) mmol/L Chloride (98-107) mmol/L Carbon Dioxide (22-30) mmol/L Creatinine (0.66-1.25) mg/dL Glucose (74-99) mg/dL POC Glucose (mg/dL) (70-110) mg/dL Calcium (8.4-10.2) mg/dL Total Protein (6.3-8.2) g/dL Albumin (3.5-5.0) g/dL Crossmatch See Detail 01/30/22 01/30/22 Range/Units 04:20 12:01 WBC (3.8-10.6) k/uL RBC (4.30-5.90) m/uL Hgb (13.0-17.5) gm/dL Hct (39.0-53.0) % Neutrophils # (1.3-7.7) k/uL Lymphocytes # (1.0-4.8) k/uL Sodium 132 L (137-145) mmol/L Chloride 108 H (98-107) mmol/L Carbon Dioxide 19 L (22-30) mmol/L Creatinine 1.30 H (0.66-1.25) mg/dL Glucose 127 H (74-99) mg/dL POC Glucose (mg/dL) 152 H (70-110) mg/dL Calcium 7.5 L (8.4-10.2) mg/dL Total Protein 5.4 L (6.3-8.2) g/dL Albumin 2.8 L (3.5-5.0) g/dL Crossmatch Assessment and Plan Assessment: Impression: Right groin pseudoaneurysm, status post repair by vascular surgery postoperative day #1 Recent cardiac stent placement Underlying coronary arteriosclerosis Benign essential hypertension Minor reaction to blood transfusion, unexpected, workup as per protocol was negative. And the reaction was very limited Recommendation: Continue present supportive care measures Vascular surgery to decide on possible discharging the patient home Cardiology to evaluate and also decide on discharging the patient home Can potentially transfer out of the ICU to a monitor bed on selective if not discharged home today. We'll continue to follow Time with Patient: Less than 30
[2022-01-30] MEDS: SODIUM CHLORIDE 0.9% 1,000 ML IV SCH (12:44)
--- NOTE | 2022-01-30 16:36 | P.PN ---
Subjective Patient seen and examined. Patient remains in ICU and being monitored. Denies any chest pain or pressure. He underwent surgery with right femoral pseudoaneurysm repair. He also received blood transfusion and did spike a temperature during transfusion. Mild pain around the right femoral site however appears stable. Objective - Vital Signs Vital signs: Vital Signs Temp 98.0 F 01/30/22 16:00 Pulse 62 01/30/22 16:00 Resp 12 01/30/22 16:00 BP 108/56 01/30/22 16:00 Pulse Ox 98 01/30/22 16:00 FiO2 Intake & Output 01/29/22 01/30/22 01/30/22 18:59 06:59 18:59 Intake Total 2233 1836 1012 Output Total 685 1160 570 Balance 1548 676 442 Weight 75.8 kg Intake: IV 1623 911 312 Pressure Bag 0.9 NS 21 36 12 Sodium Chloride 0.9% 1, 825 300 000 ml @ 75 mls/hr IV . [id number] [facility]A Rx#:[id number] ceFAZolin 2 gm In Sodium 50 Chloride 0.9% 50 ml @ 100 mls/hr IVPB Q8HR [facility] Rx# :[id number] Intake, IV Titration 300 75 Amount Sodium Chloride 0.9% 1, 250 75 000 ml @ 75 mls/hr IV . [id number] [facility]A Rx#:[id number] ceFAZolin 2 gm In Sodium 50 Chloride 0.9% 50 ml @ 100 mls/hr IVPB Q8HR [facility]A Rx# :[id number] Oral 850 700 Blood Product 310 Rc As-1 Unit 310 [id number] Output: Urine 635 1160 570 Estimated Blood Loss 50 Other: Voiding Method Indwelling Catheter Indwelling Catheter Indwelling Catheter # Voids 1 ABP, PAP, CO, CI - Last Documented Arterial Blood Pressure 88/66 - Labs CBC & Chem 7: 01/30/22 04:20 01/30/22 04:20 Labs: Abnormal Lab Results - Last 24 Hours (Table) 01/29/22 01/30/22 01/30/22 Range/Units 17:50 04:20 04:20 WBC 11.4 H (3.8-10.6) k/uL RBC 2.57 L 2.54 L (4.30-5.90) m/uL Hgb 8.4 L D 8.3 L (13.0-17.5) gm/dL Hct 24.2 L 24.0 L (39.0-53.0) % Neutrophils # 9.0 H (1.3-7.7) k/uL Lymphocytes # 0.3 L (1.0-4.8) k/uL Sodium 132 L (137-145) mmol/L Chloride 108 H (98-107) mmol/L Carbon Dioxide 19 L (22-30) mmol/L Creatinine 1.30 H (0.66-1.25) mg/dL Glucose 127 H (74-99) mg/dL POC Glucose (mg/dL) (70-110) mg/dL Calcium 7.5 L (8.4-10.2) mg/dL Total Protein 5.4 L (6.3-8.2) g/dL Albumin 2.8 L (3.5-5.0) g/dL 01/30/22 Range/Units 12:01 WBC (3.8-10.6) k/uL RBC (4.30-5.90) m/uL Hgb (13.0-17.5) gm/dL Hct (39.0-53.0) % Neutrophils # (1.3-7.7) k/uL Lymphocytes # (1.0-4.8) k/uL Sodium (137-145) mmol/L Chloride (98-107) mmol/L Carbon Dioxide (22-30) mmol/L Creatinine (0.66-1.25) mg/dL Glucose (74-99) mg/dL POC Glucose (mg/dL) 152 H (70-110) mg/dL Calcium (8.4-10.2) mg/dL Total Protein (6.3-8.2) g/dL Albumin (3.5-5.0) g/dL Assessment and Plan Assessment: Assessment #1 coronary artery disease and status post PCI #2 right groin pseudoaneurysm, s/p repair 01/29 #3 hypertension #4 dyslipidemia #5 acute blood loss anemia, status post blood transfusion 01/29 Plan Continue dual antiplatelet therapy Continue to monitor right femoral site and monitor hemoglobin. Appears to be stabilizing after surgery. Blood pressures somewhat borderline however appears to be doing well. Hopeful discharge home in next 24-48 hours if remains stable.
[2022-01-30 17:31] LABS: Glucose,Whole Blood 159 mg/dL (70-110)
--- NOTE | 2022-01-30 18:21 | P.PN ---
Subjective Progress Note Date: 01/30/22 Patient seen and examined. Overall feeling better. Thinks his groin pain is significantly improved. Mild discomfort at the incision site. He did have blood transfusion yesterday and did have a temperature after transfusion however has since resolved without any further concerns. He has been up to chair. He has urinated since his Hinson catheters been removed. The A-line was removed today. Objective - Vital Signs Vital signs: Vital Signs Temp 98.0 F 01/30/22 16:00 Pulse 75 01/30/22 18:00 Resp 26 H 01/30/22 18:00 BP 128/70 01/30/22 18:00 Pulse Ox 96 01/30/22 18:00 FiO2 Intake & Output 01/29/22 01/30/22 01/30/22 18:59 06:59 18:59 Intake Total 2233 1836 1362 Output Total 685 1160 970 Balance 1548 676 392 Weight 75.8 kg Intake: IV 1623 911 312 Pressure Bag 0.9 NS 21 36 12 Sodium Chloride 0.9% 1, 825 300 000 ml @ 75 mls/hr IV . [id number] [facility]A Rx#:[id number] ceFAZolin 2 gm In Sodium 50 Chloride 0.9% 50 ml @ 100 mls/hr IVPB Q8HR [facility]A Rx# :[id number] Intake, IV Titration 300 75 Amount Sodium Chloride 0.9% 1, 250 75 000 ml @ 75 mls/hr IV . [id number] [facility]A Rx#:[id number] ceFAZolin 2 gm In Sodium 50 Chloride 0.9% 50 ml @ 100 mls/hr IVPB Q8HR [facility]A Rx# :[id number] Oral 850 1050 Blood Product 310 Rc As-1 Unit 310 [id number] Output: Urine 635 1160 970 Estimated Blood Loss 50 Other: Voiding Method Indwelling Catheter Indwelling Catheter Indwelling Catheter # Voids 0 ABP, PAP, CO, CI - Last Documented Arterial Blood Pressure 88/66 - Exam Right upper extremity mild edema, improved from previous. Ecchymosis. Left upper extremity a leg removed. Site is clean and dry. Right femoral incision site with previous ecchymosis. Dressing appears clean and dry. Minimal serosanguineous output in the JADYN drain - Labs CBC & Chem 7: 01/30/22 04:20 01/30/22 04:20 Labs: Abnormal Lab Results - Last 24 Hours (Table) 01/29/22 01/30/22 01/30/22 Range/Units 17:50 04:20 04:20 WBC 11.4 H (3.8-10.6) k/uL RBC 2.57 L 2.54 L (4.30-5.90) m/uL Hgb 8.4 L D 8.3 L (13.0-17.5) gm/dL Hct 24.2 L 24.0 L (39.0-53.0) % Neutrophils # 9.0 H (1.3-7.7) k/uL Lymphocytes # 0.3 L (1.0-4.8) k/uL Sodium 132 L (137-145) mmol/L Chloride 108 H (98-107) mmol/L Carbon Dioxide 19 L (22-30) mmol/L Creatinine 1.30 H (0.66-1.25) mg/dL Glucose 127 H (74-99) mg/dL POC Glucose (mg/dL) (70-110) mg/dL Calcium 7.5 L (8.4-10.2) mg/dL Total Protein 5.4 L (6.3-8.2) g/dL Albumin 2.8 L (3.5-5.0) g/dL 01/30/22 01/30/22 Range/Units 12:01 17:30 WBC (3.8-10.6) k/uL RBC (4.30-5.90) m/uL Hgb (13.0-17.5) gm/dL Hct (39.0-53.0) % Neutrophils # (1.3-7.7) k/uL Lymphocytes # (1.0-4.8) k/uL Sodium (137-145) mmol/L Chloride (98-107) mmol/L Carbon Dioxide (22-30) mmol/L Creatinine (0.66-1.25) mg/dL Glucose (74-99) mg/dL POC Glucose (mg/dL) 152 H 159 H (70-110) mg/dL Calcium (8.4-10.2) mg/dL Total Protein (6.3-8.2) g/dL Albumin (3.5-5.0) g/dL Assessment and Plan Assessment: Right groin pseudoaneurysm Recent cardiac stent placement Plan: Overall patient appears to be doing well. He can downgraded from the ICU. Continue JADYN at this time for further monitoring. Possibly consider removal tomorrow versus going home with drain and follow-up in the office and short-term for discontinuation. Increase activity. Monitor labs. Hopeful for discharge in the next 24 hours.
[2022-01-30] MEDS: ALPRAZolam 0.5 MG TAB PO PRN (20:46)
[2022-01-30] MEDS: MIRTAZAPINE 15 MG TAB PO SCH (20:55)
[2022-01-31 08:57] VITALS: BP 145/65; PULSE 69; RESP 18; TEMP 97.6
[2022-01-31] MEDS: SODIUM CHLORIDE 0.9% 1,000 ML IV SCH (08:57)
[2022-01-31] MEDS ORDERED: ASPIRIN 81 MG PO SCH (09:00)
[2022-01-31] MEDS: TICAGRELOR 90 MG TAB PO SCH (09:11)
[2022-01-31] MEDS: FAMOTIDINE 20 MG TAB PO SCH (09:11)
[2022-01-31] MEDS: ISOSORBIDE MONONITRATE ER 30 MG TAB.ER.24H PO SCH (09:11)
[2022-01-31] MEDS: METOPROLOL SUCCINATE (ER) 50 MG TAB.ER.24H PO SCH (09:11)
[2022-01-31] MEDS: ATORVASTATIN 80 MG TAB PO SCH (09:11)
[2022-01-31] MEDS: allopurinoL 100 MG TAB PO SCH (09:11)
--- NOTE | 2022-01-31 09:46 | CDI ---
Documentation Clarification Form Date: 01/31/2022 09:34:02 AM From: Tiana Infante CCS, CCDS Admit Date: 01/28/2022 07:40:00 AM Patient Name: Scar Rodriguez Visit Number: [id number] Discharge Date: ATTENTION: The Clinical Documentation Specialists (CDI) and [facility] Coding Staff appreciate your assistance in clarifying documentation. Please respond to the clarification below the line at the bottom and electronically sign. The CDI & [facility] Coding staff will review the response and follow-up if needed. Please note: Queries are made part of the Legal Health Record. If you have any questions, please contact the author of this message via ITS. Dr. Chente Johnson: Acute blood loss anemia, status post blood transfusion 01/29 is documented in the 01/30 Cardiology Progress Note. Additional clarification is requested regarding the relationship, if any, that exists between the diagnosis and the procedure. Patients Admitting Diagnosis: Admit with 01/28 with Pseudoaneurysm which developed after cardiac procedure, PTCA on 01/26. Post-Operative Diagnosis: CAD status post PCI, Right groin pseuoaneurysm status post repair 01/29, Hypertension, Hyperlipidemia, ABLA status post blood transfusion 01/29. Procedure performed: 01/26 PTCA and stenting of a long proximal calcified ulcerated RCA lesion with drug eluting stents. PTCA an stenting of major diagonal branch of LAD with a drug eluting stent. History/Risk Factors per the 01/28 Cardiology Consult: Asthma, GERD, Hyperlipidemia, Hypertension, [place], Gout, Migraines, Former smoker. Clinical Indicators: Presented for elective PTCA with stent on 01/26. Admit on 01/28 with Pseudoaneurysm right femoral artery status post open surgical repair on 01/29. 01/29 Blood Transufsion: 1 unit. Treatment: 01/29 Blood transfusion as above, O2 2Lnc, IV Cefazolin, IV Na Chloride, IV Heparin, IV Lactated ringers, IV Demerol 12.5 mg x1, IV Decadron 6 mg x1, IV Zofran 4 mg q6H, IV Apresoline 10 mg q6H, po Brillinta BI. What relationship, if any, exists between the diagnosis of Pseudoaneurysm requiring surgical repair and Acute Blood Loss Anemia and the procedure: [ x ] ABLA is a complication of surgical procedure [ ] ABLA is an expected outcome of the surgical procedure [ ] ALBA is related to patients co-morbid condition(s), please specify: an is not a complication of the procedure [ ] Other please specify: [ ] Unable to determine (Template Last Revised: September 2020) MTDD
--- NOTE | 2022-01-31 11:22 | P.PN ---
Subjective Progress Note Date: 01/31/22 Principal diagnosis: Pseudoaneurysm On patient seen and examined at the follow-up he is status post repair of right femoral pseudoaneurysm. He has a JADYN drain in place with reported 15, also out of serosanguineous drainage through the night. There is another 5-10 miles in there currently. He states he does have some tenderness however he's been up and ambulating. He has good sensation to the right lower extremity. Objective - Vital Signs Vital signs: Vital Signs Temp 97.6 F 01/31/22 08:56 Pulse 69 01/31/22 08:56 Resp 18 01/31/22 08:56 BP 145/65 01/31/22 08:56 Pulse Ox 97 01/31/22 08:56 FiO2 Intake & Output 01/30/22 01/31/22 01/31/22 18:59 06:59 18:59 Intake Total 1362 150 Output Total 970 15 Balance 392 135 Intake: IV 312 Pressure Bag 0.9 NS 12 Sodium Chloride 0.9% 1, 300 000 ml @ 75 mls/hr IV . [id number] VERA Rx#:[id number] Oral 1050 150 Output: Drainage 15 Right 15 Urine 970 0 Other: Voiding Method Indwelling Catheter Urinal # Voids 0 2 ABP, PAP, CO, CI - Last Documented Arterial Blood Pressure 88/66 - Exam Right lower extremity mild edema, ecchymosis. JADYN drain intact, dressing with small amount of old blood noted. Minimal serosanguineous output in the JADYN drain. Palpable femoral, popliteal and DP pulses. - Labs CBC & Chem 7: 01/30/22 04:20 01/30/22 04:20 Labs: Abnormal Lab Results - Last 24 Hours (Table) 01/28/22 01/30/22 01/30/22 Range/Units 19:05 12:01 17:30 POC Glucose (mg/dL) 152 H 159 H (70-110) mg/dL Crossmatch See Detail Assessment and Plan Assessment: 1. Right groin pseudoaneurysm status post repair 2. Recent cardiac stent placement Plan: Patient is cleared for discharge from vascular surgical standpoint would like to keep JADYN drain in place, patient to follow-up with Dr. Hinson for removal within 1 week. Thank you for this consultation. The impression and plan of care has been dictated as directed. I performed a history and examination of this patient, discussed the same with the dictator. I agree with the dictator's note ,documented as a scribe. Any additional findings or plans will be noted.
--- NOTE | 2022-01-31 12:12 | P.PN ---
Subjective Progress Note Date: 01/31/22 Principal diagnosis: ASHD. Status post right groin exploration and repair of right femoral artery pseudoaneurysm. Postoperative day #1 This is a 66-year-old white male with history of chronic dyspnea on exertion 2 months. Patient was seen by Dr. Hoffman in the office, and he underwent stress testing which was inconclusive. Patient underwent cardiac catheterization on 01/04/22, and it was significant for long area of stenosis in the RCA, 95%. However considering the patient had abnormal renal profile at the time, he was advised to undergo angioplasty of the RCA at a later date. On 01/26, patient underwent PTCA and stenting of long proximal calcified ulcerated RCA lesion with drug-eluting stents. He also had PTCA and stenting of major diagonal branch of LAD. This was done by Dr. ESTHER Perkins however this was complicated by developing pseudoaneurysm of the right femoral artery. Radiology was consulted however the abnormality in the right femoral artery was not felt to be appropriate for injections been vascular surgery was consulted. Today the patient underwent rep air of pseudoaneurysm of the right femoral artery, postoperatively the surgeon felt it would be best to monitor the patient in the ICU. CT angiogram prior to surgery showed pseudoaneurysm right groin possible AV fistula and possible some local dissection Reevaluated today 01/30/2022, patient is doing fairly well, relatively asymptomatic. No cough no wheezing no shortness of breath, continues to have a JADYN drain in the right groin area, however the patient is relatively asymptomatic. Yesterday the patient had a low hemoglobin of 6.9 he did receive a unit of packed RBCs, patient developed a minor nonhemolytic reaction to the blood transfusion, patient developed fever, chills, and hypertension. This was very transient, workup for major reaction to blood transfusion was negative. Patient did receive 1 dose of Decadron, and within half an hour his symptoms have completely resolved. Today the patient is doing well, and asymptomatic. Labs today including CBC and basic metabolic profile are unremarkable. His hemoglobin is 8.3, it was 6.9 yesterday Progress note dated 01/31/2022. The patient was seen in consultation at couple days ago. Patient was in the intensive care unit for a possible pseudoaneurysm, of the right femoral artery. The patient is currently resting comfortably, and hoping to be discharged home soon. The patient is not on any supplemental oxygen. The patient is not receiving any IV fluids. No new labs today. Objective - Vital Signs Vital signs: Vital Signs Temp 97.6 F 01/31/22 08:56 Pulse 69 01/31/22 08:56 Resp 18 01/31/22 08:56 BP 145/65 01/31/22 08:56 Pulse Ox 97 01/31/22 08:56 FiO2 Intake & Output 01/30/22 01/31/22 01/31/22 18:59 06:59 18:59 Intake Total 1362 150 Output Total 970 15 Balance 392 135 Intake: IV 312 Pressure Bag 0.9 NS 12 Sodium Chloride 0.9% 1, 300 000 ml @ 75 mls/hr IV . [id number] VERA Rx#:[id number] Oral 1050 150 Output: Drainage 15 Right 15 Urine 970 0 Other: Voiding Method Indwelling Catheter Urinal Urinal # Voids 0 2 ABP, PAP, CO, CI - Last Documented Arterial Blood Pressure 88/66 - Exam No acute distress, oriented 3. HEENT examination is grossly unremarkable. Neck supple. Full range of motion. No adenopathy thyromegaly or neck vein distention. Cardiovascular examination reveals regular rhythm rate. S1-S2 normal. No S3 or S4. No discernible murmur noted. Heart rate 69 bpm. Lungs reveal clear breath sounds. Her sounds are equal bilaterally. No adventitious lung sounds including wheezes rhonchi or crackles. Saturations are 97% on room air. Abdomen soft bowel sounds are heard. No masses or tenderness. Extremities are intact. No cyanosis clubbing or edema. Skin is without rash or lesion. Neurologic examination is brief but nonfocal. - Labs CBC & Chem 7: 01/30/22 04:20 01/30/22 04:20 Labs: Abnormal Lab Results - Last 24 Hours (Table) 01/28/22 01/30/22 Range/Units 19:05 17:30 POC Glucose (mg/dL) 159 H (70-110) mg/dL Crossmatch See Detail Assessment and Plan Assessment: Right inguinal pseudoaneurysm, status post repair by vascular surgery. Recent cardiac stent placement. History of CAD. History of hypertension. Mild reaction to blood transfusion. Plan: Plan dated 01/31/2022. The patient is hoping to be discharged soon. He's not having any respiratory issues. He is not receiving any supplemental oxygen. He is not receiving any IV fluids. Moving forward, we will see the patient only as needed. His overall prognosis is thought to be very good. No additional recommendations at this time. Time with Patient: Less than 30
--- NOTE | 2022-01-31 19:25 | PN ---
PROGRESS NOTE Mr. Scar Dubois underwent vascular surgery with repair of pseudoaneurysm on Monday. This gentleman underwent stenting of RCA and major diagonal branch prior to that and developed pseudoaneurysm following the procedure. He is doing well. Hemoglobin is 8.3. Vitals are stable. S1-S2 heard normally. Ejection systolic murmur at the base and holosystolic murmur at the apex. Lungs are clear. Abdomen is soft. His right groin site has mild tenderness. He has a JADYN drain. Plan is to discharge him and follow with Vascular Surgery and Dr. Figueredo within one week. Discharge instructions were given. I gave prescriptions for Brilinta and aspirin and advised not to do any strenuous activity. MMODL / IJN: [id number] /
[2022-01-31] MEDS ORDERED: amLODIPine 2.5 MG TAB PO SCH (21:00)
== END 2022-01-31 13:09 | disposition home or self-care (01) | DRG 247 ==
LOC: CATHCVL 05:55 → 6NMEDSUR 08:50 → CATHCVL 01-27 15:17 → 6NMEDSUR 01-27 15:17 → OBSVTOIN 01-28 07:40 → 2SICU 01-29 10:14 → 3SCARD 01-31 02:15
PROVIDERS: ADMIT Internal Medicine Interventional Cardiology; ATTEND Internal Medicine Interventional Cardiology
PROC: 027136Z Dilation of Coronary Artery, Two Arteries with Three Drug-eluting Intraluminal Devices, Percutaneous Approach (ICD-10-PCS; principal; 2022-01-26 07:30)
PROC: 0YB70ZZ Excision of Right Femoral Region, Open Approach (ICD-10-PCS; 2022-01-29)
PROC: 04QK0ZZ Repair Right Femoral Artery, Open Approach (ICD-10-PCS; 2022-01-29)
PROC: 30233N1 Transfusion of Nonautologous Red Blood Cells into Peripheral Vein, Percutaneous Approach (ICD-10-PCS; 2022-01-29)
DX: T81.718A Complication of other artery following a procedure, not elsewhere classified, initial encounter (principal); D62 Acute posthemorrhagic anemia; I42.9 Cardiomyopathy, unspecified; I97.610 Postprocedural hemorrhage of a circulatory system organ or structure following a cardiac catheterization; I72.4 Aneurysm of artery of lower extremity; I73.9 Peripheral vascular disease, unspecified; M10.9 Gout, unspecified; G43.909 Migraine, unspecified, not intractable, without status migrainosus; I25.10 Atherosclerotic heart disease of native coronary artery without angina pectoris; E78.5 Hyperlipidemia, unspecified; I12.9 Hypertensive chronic kidney disease with stage 1 through stage 4 chronic kidney disease, or unspecified chronic kidney disease; I25.2 Old myocardial infarction; I25.82 Chronic total occlusion of coronary artery; R50.9 Fever, unspecified; I34.0 Nonrheumatic mitral (valve) insufficiency; J45.909 Unspecified asthma, uncomplicated; K21.9 Gastro-esophageal reflux disease without esophagitis; N18.9 Chronic kidney disease, unspecified; Z79.82 Long term (current) use of aspirin; Z79.899 Other long term (current) drug therapy; Z87.891 Personal history of nicotine dependence; Z53.09 Procedure and treatment not carried out because of other contraindication; Z20.822 Contact with and (suspected) exposure to COVID-19
CPT/HCPCS: 80048; 80053; 85025; 85027; 86850; 86880; 86900; 86901; 86920; 87635; 93975

== ENCOUNTER 2022-02-07 06:57 | Emergency (ER) | payer MEDICARE ==
--- NOTE | 2022-02-07 07:33 | ED ---
General Adult HPI - General Chief complaint: Recheck/Abnormal Lab/Rx Stated complaint: Post-op stent issues Time Seen by Provider: 02/07/22 07:10 Source: patient Mode of arrival: ambulatory Limitations: no limitations - History of Present Illness Initial comments: 66-year-old male with past history of coronary artery disease present the emergency department for evaluation of his right JADYN groin drain. Patient had a catheterization on the sixth where he received [address] Perkins. After the procedure the patient developed a pseudoaneurysm which was repaired by Dr. Hinson on January 29. A JADYN drain was placed after the aneurysm was repaired. He reports that he has been getting approximately 50 mL of serosanguineous drainage that he is emptying every day. Yesterday afternoon the patient began developing increasing pain with drainage around his drain site. One stitch remains in place. Denies any pustular drainage. No numbness tingling or weakness into his foot. He does have 2+ pitting edema which he states has been present since his procedure. He denies fevers. No nausea or vomiting. Agrees that he has been less mobile since the drain was placed. No other alleviating, precipitating or modifying factors - Related Data Home Medications Medication Instructions Recorded Confirmed Aspirin [Adult Low Dose Aspirin EC] 81 mg PO DAILY 01/03/22 01/26/22 Atorvastatin [Lipitor] 40 mg PO DAILY 01/03/22 01/26/22 Famotidine [Pepcid] 20 mg PO DAILY 01/03/22 01/26/22 Isosorbide Mononitrate ER [Imdur] 30 mg PO DAILY 01/03/22 01/26/22 Metoprolol Succinate (ER) [Toprol 50 mg PO DAILY 01/03/22 01/26/22 Xl] allopurinoL 100 mg PO DAILY 01/03/22 01/26/22 amLODIPine [Norvasc] 5 mg PO DAILY 01/03/22 01/26/22 Mirtazapine 30 mg PO HS 01/04/22 01/26/22 Allergies Allergy/AdvReac Type Severity Reaction Status Date / Time rifampin Allergy Swelling Verified 02/07/22 07:03 Review of Systems ROS Statement: Those systems with pertinent positive or pertinent negative responses have been documented in the HPI. ROS Other: All systems not noted in ROS Statement are negative. Past Medical History Past Medical History: Asthma, GERD/Reflux, Hyperlipidemia, Hypertension, Myocardial Infarction ([place]) Additional Past Medical History / Comment(s): Migraines, Gout. Last Myocardial Infarction Date:: Unknown History of Any Multi-Drug Resistant Organisms: None Reported Past Surgical History: Heart Catheterization Additional Past Surgical History / Comment(s): Colonoscopy. Past Anesthesia/Blood Transfusion Reactions: No Reported Reaction Past Psychological History: No Psychological Hx Reported Smoking Status: Former smoker Past Alcohol Use History: Daily Past Drug Use History: Marijuana - Past Family History Mother Family Medical History: No Reported History General Exam Limitations: no limitations General appearance: alert, in no apparent distress Head exam: Present: atraumatic, normocephalic, normal inspection Eye exam: Present: normal appearance, PERRL, EOMI. Absent: scleral icterus, conjunctival injection, periorbital swelling ENT exam: Present: normal exam, mucous membranes moist Neck exam: Present: normal inspection. Absent: tenderness, meningismus, lymphadenopathy Respiratory exam: Present: normal lung sounds bilaterally. Absent: respiratory distress, wheezes, rales, rhonchi, stridor Cardiovascular Exam: Present: regular rate, normal rhythm, normal heart sounds. Absent: systolic murmur, diastolic murmur, rubs, gallop, clicks GI/Abdominal exam: Present: soft, normal bowel sounds, other (JADYN drain in place with 1 nylon stitch to the right groin. There is some serosanguineous drainage from around the drain site. No pustular drainage. Mild fibrinous tissue at opening. No bloody drainage). Absent: distended, tenderness, guarding, rebound, rigid Extremities exam: Present: normal inspection, full ROM, normal capillary refill, pedal edema (1+ edema right foot and calf. Palpable DP and PT pulses. Normal cap refill. Compartments are soft). Absent: tenderness, joint swelling, calf tenderness Back exam: Present: normal inspection Neurological exam: Present: alert, oriented X3, CN II-XII intact Psychiatric exam: Present: normal affect, normal mood Skin exam: Present: warm, dry, intact, normal color. Absent: rash Course Vital Signs 02/07/22 02/07/22 02/07/22 06:58 08:05 11:14 Temperature 98.2 F 97.5 F L Pulse Rate 77 69 72 Respiratory 22 18 18 Rate Blood Pressure 184/75 162/75 165/74 O2 Sat by Pulse 99 98 98 Oximetry - Reevaluation(s) Reevaluation #1: Spoke with Dr. Mckeon. Would like US of the groin performed. 02/07/22 07:20 Reevaluation #2: Spoke with Becca - vascular [employer] - will speak with Dr. Mckeon regarding case. 02/07/22 08:57 Reevaluation #3: 02/07/22 10:38 Spoke with [employer] - still no notification about patients dispo Medical Decision Making - Medical Decision Making Upon arrival patient was placed into room 15. He was evaluated by myself. I did call and speak with Dr. Mckeon. He is requesting an ultrasound. Ultrasound was performed and I did relay the results to Luan as requested. She does come to the emergency room and evaluates the patient. She does speak with Dr. Mckeon in regards to the patient and the patient may be discharged. Follow up in office on Monday at his scheduled appointment. Patient was agreeable and discharged home in stable condition Disposition Clinical Impression: Pseudoaneurysm following procedure Disposition: HOME SELF-CARE Condition: Stable Instructions (If sedation given, give patient instructions): Groin Pain (ED) Additional Instructions: Follow-up at your appointment on Monday. Return to the emergency room for any new or worsening symptoms Is patient prescribed a controlled substance at d/c from ED?: No Referrals: Burt Haider MD [Primary Care Provider] - 1-2 days Mirian Hinson DO [STAFF PHYSICIAN] - 1-2 days Time of Disposition: 11:05
[2022-02-07 08:07] VITALS: RESP 18
--- NOTE | 2022-02-07 08:39 | US ---
EXAMINATION TYPE: US lower ext pseudo artery RT DATE OF EXAM: 02/07/2022 COMPARISON: NONE CLINICAL HISTORY: pseudoanerysm right groin hx, drain in place. Hx of pseudoaneurysm surgery was done to repair it x 9 days ago. Drained was placed in area now leaking. EXAM PERFORMED: Grayscale and color Doppler duplex imaging performed of the groin, post cardiac karen ter to assess for pseudoaneurysm. SIDE PERFORMED: Right Scanned area of concern tube visualized no fluid seen. IMPRESSION: As above
--- NOTE | 2022-02-07 11:02 | P.GSCN ---
History of Present Illness Consult date: 02/07/22 Reason for Consult: Postop drainage Requesting physician: Shyanne Del Cid History of present illness: This is 66-year-old male who presented to the emergency department with concerns for drainage from his right femoral pseudoaneurysm incision site. The patient underwent stenting of the RCA for a right groin approach and had developed a pseudoaneurysm. He underwent right groin exploration with control of hemorrhage and repair of the right femoral artery pseudoaneurysm aneurysm done on 01/29/2022. He had a JADYN drain placed. He was discharged home on 01/31/2022. He presented to the emergency department with concerns that there was some drainage around the JADYN drain tubing. He denies any fevers or chills. He is scheduled for follow-up appointment with Dr. Hinson this coming 01/10/2022. Vascular surgery was asked to evaluate patient. He had a right lower extremity ultrasound today reported no visualized fluid seen fluid collection. No pseudoaneurysm. He denies any pain in the right groin, denies pain in the right lower extremity. He has full range of motion. JADYN drain has been putting out approximately 25-50 mL's of serosanguineous drainage per day. Patient's JADYN drain currently is pulling and is already down at his ankle. Review of Systems A 14 point review systems was completed all pertinent positives and negatives as stated in the HPI. Past Medical History Past Medical History: Asthma, GERD/Reflux, Hyperlipidemia, Hypertension, Myocardial Infarction ([place]) Additional Past Medical History / Comment(s): Migraines, Gout. Last Myocardial Infarction Date:: Unknown History of Any Multi-Drug Resistant Organisms: None Reported Past Surgical History: Heart Catheterization Additional Past Surgical History / Comment(s): Colonoscopy. Past Anesthesia/Blood Transfusion Reactions: No Reported Reaction Past Psychological History: No Psychological Hx Reported Smoking Status: Former smoker Past Alcohol Use History: Daily Past Drug Use History: Marijuana - Past Family History Mother Family Medical History: No Reported History Medications and Allergies Home Medications Medication Instructions Recorded Confirmed Type Aspirin [Adult Low Dose Aspirin EC] 81 mg PO DAILY 01/03/22 01/26/22 History Atorvastatin [Lipitor] 40 mg PO DAILY 01/03/22 01/26/22 History Famotidine [Pepcid] 20 mg PO DAILY 01/03/22 01/26/22 History Isosorbide Mononitrate ER [Imdur] 30 mg PO DAILY 01/03/22 01/26/22 History Metoprolol Succinate (ER) [Toprol 50 mg PO DAILY 01/03/22 01/26/22 History Xl] allopurinoL 100 mg PO DAILY 01/03/22 01/26/22 History amLODIPine [Norvasc] 5 mg PO DAILY 01/03/22 01/26/22 History Mirtazapine 30 mg PO HS 01/04/22 01/26/22 History Allergies Allergy/AdvReac Type Severity Reaction Status Date / Time rifampin Allergy Swelling Verified 02/07/22 07:03 Surgical - Exam Vital Signs Temp Pulse Resp BP Pulse Ox 98.2 F 77 22 184/75 99 02/07/22 06:58 02/07/22 06:58 02/07/22 06:58 02/07/22 06:58 02/07/22 06:58 General appearance: The patient is alert, oriented, appears in no acute distress. HET: Head is normocephalic and atraumatic. Pupils are equal and reactive. Neck: Supple without lymphadenopathy. Trachea midline. No audible carotid bruit. Heart: S1 S2. Regular rate and rhythm. Lungs: Clear to auscultation bilaterally. Abdomen: Soft, nontender, nondistended. Extremities: Normal skin color and turgor. No cyanosis, rash, ulceration, or clubbing. He does have +2 pitting edema. Right groin incision site well approximated, JADYN drain intact with suture with 25 mL's of serosanguineous drainage. There is a scant to small amount of serosanguineous drainage coming from where the tubing is inserted. There is no surrounding erythema. Neurological: No focal deficits. Strength and sensation are grossly intact. Results - Imaging Comments: Right lower extremity arterial ultrasound reviewed as stated in HPI Assessment and Plan Assessment: 1. Recent right femoral pseudoaneurysm status post cardiac catheterization with exploration, control of hemorrhage and repair of right femoral artery pseudoaneurysm 2. JADYN drain present, with serosanguineous drainage Plan: 1. Right lower extremity ultrasound ordered and reviewed 2. Discussed with patient to tape JADYN drain up to thigh. Do not allow to pull or dangle. 3. Patient may be discharged home from a vascular surgical standpoint and follow-up with Dr. Hinson is scheduled on 02/09/2022 Thank you for this consultation. The impression and plan of care has been dictated as directed. I performed a history and examination of this patient, discussed the same with the dictator. I agree with the dictator's note ,documented as a scribe. Any additional findings or plans will be noted.
[2022-02-07 11:15] VITALS: BP 165/74; PULSE 72; TEMP 97.5
== END 2022-02-07 11:14 | disposition home or self-care (01) ==
LOC: EC 06:57
DX: T82.511A Breakdown (mechanical) of surgically created arteriovenous shunt, initial encounter (principal); J45.909 Unspecified asthma, uncomplicated; K21.9 Gastro-esophageal reflux disease without esophagitis; I10 Essential (primary) hypertension; Z87.891 Personal history of nicotine dependence; I25.2 Old myocardial infarction; Z88.8 Allergy status to other drugs, medicaments and biological substances; Z79.82 Long term (current) use of aspirin; Z79.899 Other long term (current) drug therapy
CPT/HCPCS: 93975; 99284

== ENCOUNTER 2022-05-05 08:36 | Emergency (ER) | payer MEDICARE ==
--- NOTE | 2022-05-05 12:33 | XR ---
EXAMINATION TYPE: XR toes RT DATE OF EXAM: 05/05/2022 COMPARISON: NONE HISTORY: 66-year-old male fifth digit toe pain for one week. TECHNIQUE: 3 views coned-down right fifth toe FINDINGS: No acute fracture, subluxation, dislocation. No periostitis or osteolysis. IMPRESSION: Imaging coned down onto the fifth toe. No acute osseous abnormality seen.
[2022-05-05 12:50] LABS: Basophils # (A) 0.1 k/uL (0-0.2); Basophils % (A) 1 %; Eosinophils # (A) 0.2 k/uL (0-0.7); Eosinophils % (A) 2 %; HGB 13.8 gm/dL (13.0-17.5); Lymphocytes % (A) 10 %; MCH 32.3 pg (25.0-35.0); MCHC 34.5 g/dL (31.0-37.0); MCV 93.7 fL (80.0-100.0); Mean Platelet Volume 7.8; Monocytes # (A) 0.5 k/uL (0-1.0); Monocytes % (A) 5 %; Neutrophils # (A) 8.2 k/uL (1.3-7.7); Neutrophils % (A) 81 %; Platelet Count 233 k/uL (150-450); RBC 4.27 m/uL (4.30-5.90); RDW 14.7 % (11.5-15.5); WBC 10.1 k/uL (3.8-10.6)
[2022-05-05 13:06] LABS: Calcium 9.3 mg/dL (8.4-10.2); Magnesium 1.5 mg/dL (1.6-2.3)
[2022-05-05] MEDS ORDERED: SODIUM CHLORIDE 0.9% 1,000 ML IV ONE (13:09)
[2022-05-05] MEDS ORDERED: MAGNESIUM OXIDE 400 MG TAB PO STA (13:09)
--- NOTE | 2022-05-05 13:14 | ED ---
General Adult HPI - General Chief complaint: Extremity Injury, Lower Stated complaint: Pain in toes, right foot Time Seen by Provider: 05/05/22 11:37 Source: patient, RN notes reviewed Mode of arrival: ambulatory Limitations: no limitations - History of Present Illness Initial comments: 66-year-old male presents emergency Department with chief complaint of right foot fifth digit toe pain. Patient states started a week ago so some discoloration. Patient states he has had prior stenting of his right leg where has no pain associated. He states only his toe denies any trauma. Patient states he was recently placed in magnesium secondary to his magnesium being low. Patient states his primary care doctor want to go to the emergency Department the time but states he was intoxicated and cannot presents emergency department. - Related Data Home Medications Medication Instructions Recorded Confirmed Aspirin [Adult Low Dose Aspirin EC] 81 mg PO DAILY 01/03/22 01/26/22 Atorvastatin [Lipitor] 40 mg PO DAILY 01/03/22 01/26/22 Famotidine [Pepcid] 20 mg PO DAILY 01/03/22 01/26/22 Isosorbide Mononitrate ER [Imdur] 30 mg PO DAILY 01/03/22 01/26/22 Metoprolol Succinate (ER) [Toprol 50 mg PO DAILY 01/03/22 01/26/22 Xl] allopurinoL 100 mg PO DAILY 01/03/22 01/26/22 amLODIPine [Norvasc] 5 mg PO DAILY 01/03/22 01/26/22 Mirtazapine 30 mg PO HS 01/04/22 01/26/22 Previous Rx's Medication Instructions Recorded Cephalexin [Keflex] 500 mg PO Q6HR #40 cap 05/05/22 Allergies Allergy/AdvReac Type Severity Reaction Status Date / Time rifampin Allergy Swelling Verified 05/05/22 08:46 Review of Systems ROS Statement: Those systems with pertinent positive or pertinent negative responses have been documented in the HPI. ROS Other: All systems not noted in ROS Statement are negative. Past Medical History Past Medical History: Asthma, GERD/Reflux, Hyperlipidemia, Hypertension, Myocardial Infarction (NM) Additional Past Medical History / Comment(s): Migraines, Gout. Last Myocardial Infarction Date:: Unknown History of Any Multi-Drug Resistant Organisms: None Reported Past Surgical History: Heart Catheterization Additional Past Surgical History / Comment(s): Colonoscopy. Past Anesthesia/Blood Transfusion Reactions: No Reported Reaction Past Psychological History: No Psychological Hx Reported Smoking Status: Former smoker Past Alcohol Use History: Daily Past Drug Use History: Marijuana - Past Family History Mother Family Medical History: No Reported History General Exam Limitations: no limitations General appearance: alert, in no apparent distress Head exam: Present: atraumatic, normocephalic, normal inspection Respiratory exam: Present: normal lung sounds bilaterally. Absent: respiratory distress, wheezes, rales, rhonchi, stridor Cardiovascular Exam: Present: regular rate, normal rhythm, normal heart sounds. Absent: systolic murmur, diastolic murmur, rubs, gallop, clicks Extremities exam: Present: other (Right foot fifth digit there is some skin sloughing, appears to be from drinking, cap refill less than 2 seconds pulses equal bilaterally) Course Vital Signs 05/05/22 08:43 Temperature 97.7 F Pulse Rate 105 H Respiratory 20 Rate Blood Pressure 160/78 O2 Sat by Pulse 99 Oximetry Medical Decision Making - Medical Decision Making 66-year-old presented for toe issue. Patient has open blistering concern for infection. He has no vascular issues noted this time. Patient went of some bruising labs were drawn and low magnesium magnesium was replaced, patient did have mildly elevated creatinine though states it has been in the past. Patient was given fluid bolus will follow palpation. - Lab Data Result diagrams: 05/05/22 12:32 05/05/22 12:32 Lab Results 05/05/22 05/05/22 Range/Units 12:32 12:32 WBC 10.1 (3.8-10.6) k/uL RBC 4.27 L (4.30-5.90) m/uL Hgb 13.8 (13.0-17.5) gm/dL Hct 40.0 (39.0-53.0) % MCV 93.7 (80.0-100.0) fL MCH 32.3 (25.0-35.0) pg MCHC 34.5 (31.0-37.0) g/dL RDW 14.7 (11.5-15.5) % Plt Count 233 (150-450) k/uL MPV 7.8 Neutrophils % 81 % Lymphocytes % 10 % Monocytes % 5 % Eosinophils % 2 % Basophils % 1 % Neutrophils # 8.2 H (1.3-7.7) k/uL Lymphocytes # 1.0 (1.0-4.8) k/uL Monocytes # 0.5 (0-1.0) k/uL Eosinophils # 0.2 (0-0.7) k/uL Basophils # 0.1 (0-0.2) k/uL Sodium 141 (137-145) mmol/L Potassium 4.0 (3.5-5.1) mmol/L Chloride 111 H (98-107) mmol/L Carbon Dioxide 17 L (22-30) mmol/L Anion Gap 13 mmol/L BUN 28 H (9-20) mg/dL Creatinine 2.07 H (0.66-1.25) mg/dL Est GFR (CKD-EPI)AfAm 37 (>60 ml/min/1.73 sqM) Est GFR (CKD-EPI)NonAf 32 (>60 ml/min/1.73 sqM) Glucose 106 H (74-99) mg/dL Calcium 9.3 (8.4-10.2) mg/dL Magnesium 1.5 L (1.6-2.3) mg/dL Disposition Clinical Impression: Blister of toe, Hypomagnesemia Disposition: HOME SELF-CARE Condition: Stable Instructions (If sedation given, give patient instructions): Acute Wound Care (ED) Additional Instructions: Please return to the Emergency Department if symptoms worsen or any other concerns. Prescriptions: Cephalexin [Keflex] 500 mg PO Q6HR #40 cap Is patient prescribed a controlled substance at d/c from ED?: No Referrals: Burt Haider MD [Primary Care Provider] - 1-2 days Elizabeth Fox MD [STAFF PHYSICIAN] - 1-2 days Time of Disposition: 13:13
[2022-05-05] MEDS ORDERED: Acetaminophen-Codeine 300-30mg TAB PO STA (13:25)
[2022-05-05] MEDS ORDERED: ACET/COD 300 MG/30 MG STARTER PACK 6 TAB BTL PO STA (13:25)
[2022-05-05 14:23] VITALS: BP 187/84; PULSE 93; RESP 18; TEMP 97.8
== END 2022-05-05 14:25 | disposition home or self-care (01) ==
LOC: EC 08:36
DX: S90.424A Blister (nonthermal), right lesser toe(s), initial encounter (principal); E83.42 Hypomagnesemia; J45.909 Unspecified asthma, uncomplicated; K21.9 Gastro-esophageal reflux disease without esophagitis; I10 Essential (primary) hypertension; I25.2 Old myocardial infarction; Z87.891 Personal history of nicotine dependence; F12.90 Cannabis use, unspecified, uncomplicated; Z88.1 Allergy status to other antibiotic agents; Z79.82 Long term (current) use of aspirin; Z79.899 Other long term (current) drug therapy; X58.XXXA Exposure to other specified factors, initial encounter
CPT/HCPCS: 36415; 80048; 83735; 85025; 96360; 99283